=== PATIENT | female | born 1960 | race Caucasian/White ===

== ENCOUNTER 2018-03-17 09:21 | Emergency (ER) | payer OTHER, SELFPAY ==
[2018-03-17 09:30] VITALS: BP 136/72; PULSE 67; RESP 18; TEMP 36.8; O2SAT 99
--- NOTE | 2018-03-17 09:53 | DI.US.S_ITS ---
PROCEDURE: US PERIPH VENOUS LOW EXTREM LT INDICATIONS: pain, cramping, recent travel TECHNIQUE: Real-time imaging, as well as color and pulse Doppler interrogation, were performed of the lower extremity deep veins from the inguinal ligament to the popliteal fossa. COMPARISON: None. FINDINGS: The deep veins are normally compressible, and free of intraluminal thrombus. Color and pulse Doppler demonstrate normal phasic intraluminal flow. There is normal augmentation response to distal compression maneuver. IMPRESSION: No evidence of DVT seen in visualized left lower extremity veins. Dictated by: Anselmo Hudson M.D. on 03/17/2018 at 10:29 Approved by: Anselmo Hudson M.D. on 03/17/2018 at 10:30
--- NOTE | 2018-03-17 09:54 | DI.RAD.S_ITS ---
PROCEDURE: XR CHEST 1V INDICATIONS: syncope TECHNIQUE: One view of the chest was acquired. COMPARISON: None. FINDINGS: Surgical changes and devices: None. Lungs and pleura: No pleural effusions or pneumothorax. Lungs are clear. Mediastinum: Mediastinal contours appear normal. Heart size is normal. Bones and chest wall: No suspicious bony lesions. Overlying soft tissues appear unremarkable. IMPRESSION: No acute pulmonary process. Dictated by: Katya Dunn M.D. on 03/17/2018 at 10:52 Approved by: Katya Dunn M.D. on 03/17/2018 at 10:52
--- NOTE | 2018-03-17 09:58 | ED_ITS ---
HPI - Syncope General Chief Complaint: Syncope Stated Complaint: fainted last night, low blood pressure Time Seen by Provider: 03/17/18 09:32 Source: patient and family Mode of arrival: ambulatory Limitations: no limitations History of Present Illness HPI narrative: 57-year-old nonsmoking female presents with her daughter and a chief complaint of a syncopal episode last evening. She went to bed feeling in her normal state of health and was awoke in abruptly with a cramp in her left calf. She woke up and walked to the restroom and noted that she felt a bit dizzy and lightheaded. She urinated without difficulty and upon standing felt more dizzy. She was walking down the hallway when she collapsed, apparently having a complete syncopal episode that was brief. She denies any injuries as a result of the fall. She states she still feels a bit ill but is very nondescript in her description. She denies any recent illness such as nausea, vomiting or diarrhea. She denies any chest pain or shortness of breath. She has had episodes of dizziness in the past but states these related to SVT. She denies any change in diet or medication regimen. complaint: loss of consciousness Onset (ago): hour(s) Prodromal symptoms: lightheaded Witnessed: no Context: getting out of bed Injuries sustained associated with event: none Current symptoms: weakness Treatments prior to arrival: none Related Data Home Medications Medication Instructions Recorded Confirmed Vitamins 1 dose PO DAILY 03/17/18 03/17/18 trazodone 1 tab PO BEDTIME 03/17/18 03/17/18 Allergies Allergy/AdvReac Type Severity Reaction Status Date / Time No Known Drug Allergies Allergy Verified 03/17/18 09:39 Review of Systems Review of Systems All systems reviewed & are unremarkable except as noted in HPI and below Constitutional Denies chills, Denies fever(s), Denies lethargy and Denies weakness Eyes Denies change in vision, Denies eye discharge, Denies irritation and Denies loss of vision ENT Ears, Nose, Mouth, and Throat: Denies change in voice, Denies neck pain and Denies sore throat Cardiovascular Denies chest pain, Reports syncope, Denies irregular heart rhythm, Reports lightheadedness, Denies palpitations, Denies dyspnea, Denies dyspnea on exertion and Denies orthopnea Respiratory Denies cough, Denies dyspnea, Denies dyspnea on exertion and Denies wheezing Gastrointestinal Gastrointestinal: Denies abdominal pain, Denies change in bowel habits, Denies diarrhea, Denies nausea and Denies vomiting Genitourinary Denies hematuria, Denies flank pain, Denies urinary incontinence and Denies urinary urgency Musculoskeletal Denies neck pain Integumentary/Breasts Denies pruritus, Denies erythema, Denies rash and Denies wounds Neurologic Denies confusion, Reports syncope, Denies loss of vision and Denies weakness Psychiatric Denies anxiety, Denies confusion, Denies depression, Denies homicidal ideation and Denies suicidal ideation Endocrine Denies palpitations Hematologic/Lymphatic Denies easy bruising Allergic/Immunologic Denies wheezing [facility] Social History Smoking Status: Never smoker Exam Narrative Exam Narrative: 57-year-old female resting comfortably, no acute distress Initial Vital Signs Initial Vital Signs: Vital Signs Temperature 98.3 F 03/17/18 09:30 Pulse Rate 67 03/17/18 09:30 Respiratory Rate 18 03/17/18 09:30 Blood Pressure 136/72 03/17/18 09:30 Pulse Oximetry 99 03/17/18 09:30 Const General: cooperative and well developed Nutritional Appearance: well nourished Orientation: alert, awake, oriented x3 and not confused [facility] Head: normocephalic and atraumatic Ears: external ears normal and TM's normal bilaterally Nose: external nose normal and No nasal discharge Face and sinus: sinuses nontender, face symmetric, no sinus tenderness and No dry mucous membranes Mouth: oral mucosae normal and moist mucous membranes Teeth and gingiva: dentition normal Throat: tonsils normal and uvula midline Eyes General: appearance normal, both eyes and all related structures Eyelids: eyelids normal Conjunctivae: conjunctivae normal Sclera: sclerae normal Pupils: PERRL EOM: EOM intact bilaterally Chest Chest: normal inspection of the chest Resp Effort & Inspection: normal respiratory effort, able to speak in complete sentences, no respiratory distress and no use of accessory muscles Auscultation: clear to auscultation bilaterally, no rales, no rhonchi and no wheezes GI Inspection: non-distended Palpation: soft, no hepatosplenomegaly, No guarding, No pulsatile mass and No tender Auscultation: normal bowel sounds Back/Spine/Pelvis Back: No CVA tenderness Cervical Spine: cervical ROM normal and No pain with cervical ROM Thoracic/Lumbar Spine: thoracic and lumbar spine normal to inspection Neuro General: alert, oriented x3, gait normal and no focal motor deficits Speech: speech normal Psych Appearance: well kempt Mental Status: mental status grossly normal Attitude: cooperative Thought Content: normal and suicidality Judgment: judgment good Course Orders Ordered: ED Orders 03/17/18 09:50 Comprehensive Metabolic Panel Stat Troponin & CK Cardiac Panel Stat 03/17/18 09:53 US periph venous low extrem lt Stat EKG-12 Lead Stat 03/17/18 09:54 XR chest 1V Stat 03/17/18 10:40 Complete Blood Count AUTO DIFF Stat Discontinued Medications Sodium Chloride (Normal Saline 0.9%) 1,000 mls @ 1,000 mls/hr IV BOLUS ONE Stop: 03/17/18 10:52 Last Infusion: 03/17/18 11:50 Dose: 0 mls/hr Admin: 03/17/18 10:30 Dose: 1,000 mls/hr Vital Signs - 8 hr 03/17/18 09:30 03/17/18 11:09 03/17/18 11:59 Temperature 98.3 F Pulse Rate 67 60 Pulse Rate [Orthostatic Lying] 61 Pulse Rate [Orthostatic Sitting] 59 L Pulse Rate [Orthostatic Standing] 58 L Respiratory Rate 18 22 Blood Pressure 136/72 Blood Pressure [Left Arm] 123/72 Blood Pressure [Orthostatic Lying] 126/70 Blood Pressure [Orthostatic Sitting] 119/71 Blood Pressure [Orthostatic Standing] 129/69 Pulse Oximetry 99 100 03/17/18 12:00 03/17/18 12:13 Temperature Pulse Rate 59 L 60 Pulse Rate [Orthostatic Lying] Pulse Rate [Orthostatic Sitting] Pulse Rate [Orthostatic Standing] Respiratory Rate 22 21 Blood Pressure 139/75 Blood Pressure [Left Arm] 129/69 Blood Pressure [Orthostatic Lying] Blood Pressure [Orthostatic Sitting] Blood Pressure [Orthostatic Standing] Pulse Oximetry 100 97 MDM - Syncope Differential Diagnosis Likely syncope due to orthostatic hypotension and vasovagal syncope Medical Records Attestation: I reviewed the patient's medical records. Lab Data Attestation: I reviewed the patient's lab results. Result diagrams: 03/17/18 10:40 03/17/18 09:50 Lab Results 03/17/18 03/17/18 Range/Units 09:50 10:40 WBC 4.9 (4.5-11.0) X10^3/uL RBC 4.38 (4.0-5.2) X10^6/uL Hgb 13.6 (12.0-16.0) g/dL Hct 41.0 (36-46) % MCV 93.7 (80-100) fL MCH 31.1 (26-34) PG MCHC 33.2 (30-36) % RDW 13.5 (11.6-14.8) % Plt Count 224 (150-400) X10^3/uL Neut % (Auto) 61.3 (50-75) % Lymph % (Auto) 22.5 L (25-40) % Payne % (Auto) 15.3 H (3-14) % Eos % (Auto) 0.5 L (2-4) % Baso % (Auto) 0.4 (0-2) % Neut # (Auto) 3000 (0500-0617) /uL Sodium 138 (137-145) mmol/L Potassium 3.7 (3.4-5.1) mmol/L Chloride 98 (98-107) mmol/L Carbon Dioxide 28 (22-32) mmol/L BUN 10 (7-17) mg/dL Creatinine 0.70 (0.52-1.04) mg/dL Estimated GFR > 60.0 (>60) mL/min BUN/Creatinine Ratio 14.3 (6-22) Glucose 104 H (70-100) mg/dL Calcium 9.2 (8.4-10.2) mg/dL Total Bilirubin 0.5 (0.2-1.3) mg/dL AST 37 H (14-36) IU/L ALT 39 (9-52) IU/L Alkaline Phosphatase 36 L (38-126) U/L Total Creatine Kinase 228 H (30-135) U/L CK-MB (CK-2) 2.18 (<2.37) ng/mL CK-MB (CK-2) Rel Index 1.0 L (1.5-5.0) % Troponin I < 0.012 (0.01-0.034) ng/mL Total Protein 7.7 (6.3-8.2) g/dL Albumin 4.7 (3.5-5.0) g/dL Globulin 3.0 (1.7-4.1) g/dL Albumin/Globulin Ratio 1.6 (1.0-2.8) Point of Care Testing Glucose POC 108 Urine Dip Bedside Urine Glucose Negative Bedside Urine Bilirubin - Negative Bedside Urine Ketone - Negative Urine Specific [place] 1.010 Bedside Urine Occult Blood - Negative Bedside Urine pH 7.5 Bedside Urine Protein - Negative Bedside Urine Urobilinogen - Negative Bedside Urine Nitrite - Negative Bedside Urine Leukocytes - Negative Esterase ECG Data Attestation: I personally reviewed and interpreted this ECG as follows: Prior ECG tracings: not available for review Interpretation: EKG is normal sinus rhythm and free of any signs of ischemia or ectopy. MDM Narrative Medical decision making narrative: Healthy 57-year-old female presents with the syncopal episode. She denies any chest pain or shortness of breath nor any injuries as the result of her syncope. She has had trouble with dehydration in the past and was very busy yesterday and suggest she has had very little to drink. Her symptoms were worse with change in position. 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 She feels a near complete resolution of symptoms after fluids. Orthostatics are normal. Labs and EKG are unremarkable Discharge Plan Departure Patient Disposition: Home Clinical Impression: Syncope due to orthostatic hypotension Discharge Date/Time: 03/17/18 12:14 Interventions: ED Discharge Assessment Last Done: 03/17/18 12:13 Instructions: DI for Syncope in Adults (Fainting) Activity Restrictions/Additional Instructions: *You have been diagnosed with [syncopal episode, likely due to increased vagal tone and orthostasis ] *What to do: *Take medications as directed *Follow up with your primary care provider in 2-3 days, call for an appointment. Let them know you were seen in the Emergency Department and that we ask that you be seen in follow up *Return to ER if you should have any new, worsening or concerning symptoms Prescriptions: No Action trazodone 50 mg tablet 1 tab PO BEDTIME RF: 0 Vitamins 1 dose PO DAILY RF: 0
[2018-03-17 10:26] LABS: Alanine Aminotransferase 39 IU/L (9-52); Albumin 4.7 g/dL (3.5-5.0); Albumin Globulin Ratio 1.6 (1.0-2.8); Alkaline Phosphatase 36 U/L (38-126); Aspartate Aminotransferase 37 IU/L (14-36); BUN Creatinine Ratio 14.3 (6-22); Bilirubin Total 0.5 mg/dL (0.2-1.3); Blood Urea Nitrogen 10 mg/dL (7-17); Calcium 9.2 mg/dL (8.4-10.2); Carbon Dioxide 28 mmol/L (22-32); Chloride 98 mmol/L (98-107); Creatine Kinase 228 U/L (30-135); Estimated Glomerular Filt Rate > 60.0 mL/min (>60); Glucose 104 mg/dL (70-100); HEMOLYSIS < 15 (0-50); Potassium 3.7 mmol/L (3.4-5.1); Sodium 138 mmol/L (137-145); Total Protein 7.7 g/dL (6.3-8.2)
[2018-03-17] MEDS: SODIUM CHLORIDE 0.9% 1,000 ML 1000 ML IV (10:30)
[2018-03-17 10:41] LABS: Creatine Kinase MB 2.18 ng/mL (<2.37); Troponin I < 0.012 ng/mL (0.01-0.034)
[2018-03-17 10:52] LABS: Add Manual Diff / Slide Review NO; Basophils Percent Auto 0.4 % (0-2); Eosinophils Percent Auto 0.5 % (2-4); Hemoglobin 13.6 g/dL (12.0-16.0); Lymphocytes Percent Auto 22.5 % (25-40); Mean Corpuscular HGB Conc 33.2 % (30-36); Mean Corpuscular Hemoglobin 31.1 PG (26-34); Mean Corpuscular Volume 93.7 fL (80-100); Monocytes Percent Auto 15.3 % (3-14); Neutrophils Absolute Auto 3000 /uL (3000-5900); Neutrophils Percent Auto 61.3 % (50-75); Platelet Count 224 X10^3/uL (150-400); Red Blood Cell Count 4.38 X10^6/uL (4.0-5.2); Red Cell Distribution Width 13.5 % (11.6-14.8); White Blood Cell Count 4.9 X10^3/uL (4.5-11.0)
[2018-03-17 11:09] VITALS: BP 123/72; PULSE 60; RESP 22; O2SAT 100
[2018-03-17 11:59] VITALS: BP 119/71; BP 126/70; BP 129/69; PULSE 58; PULSE 59; PULSE 61
[2018-03-17 12:00] VITALS: BP 129/69; PULSE 59; RESP 22; O2SAT 100
[2018-03-17 12:13] VITALS: BP 139/75; PULSE 60; RESP 21; O2SAT 97
== END 2018-03-17 12:14 | disposition home or self-care (01) ==
PROVIDERS: Emergency Provider Emergency Medicine
DX: I95.1 Orthostatic hypotension (principal)
CPT/HCPCS: 36415; 36591; 71045; 80053; 81003; 82550; 82553; 82962; 84484; 85025; 93005; 93971; 96360; 99284; 99285

== ENCOUNTER 2019-01-03 09:30 | Emergency (ER) | payer OTHER, MEDICAID, SELFPAY ==
[2019-01-03 09:40] VITALS: BP 146/95; PULSE 64; RESP 18; TEMP 36.6; O2SAT 100
--- NOTE | 2019-01-03 09:48 | DI.RAD.S_ITS ---
PROCEDURE: XR FOOT RT MIN 3V INDICATIONS: fell, pain dorsum near toes TECHNIQUE: 3 views of the foot were acquired. COMPARISON: None. FINDINGS: Bones: Linear lucency projecting in the lateral malleolus however one view only. No suspicious bony lesions. Percent TB joint degeneration, moderate. Corticated ossicle projects adjacent to the anterior process of the calcaneus plantar calcaneal spurring. Prominent dorsal osteophyte, probably at the first MTP joint. Chronic 2 mm ossicle projects adjacent to the medial aspect of the talar head. Soft tissues: No tibiotalar joint effusion. Achilles tendon appears normal. IMPRESSION: Moderate first MTP degeneration prominent dorsal osteophyte raising possibility of hallux rigidus syndrome. Plantar calcaneal spur. Chronic corticated ossicle adjacent to the anterior process of the calcaneus, probably remote fracture fragment. Linear lucency projects in the lateral malleolus raising the possibility of fracture, however recommend clinical correlation to point tenderness and if necessary dedicated evaluation with ankle radiographs. Dictated by: Evans Bray M.D. on 01/03/2019 at 10:16 Approved by: Evans Bray M.D. on 01/03/2019 at 10:20
[2019-01-03 10:00] VITALS: PULSE 78
--- NOTE | 2019-01-03 11:18 | ED.LOWEXIN ---
HPI - Extremity Injury (Lower) <BOB Sahu - Last Filed: 01/03/19 15:20> General Chief Complaint: Extremity Injury, Lower Stated Complaint: 'might of broken some bones in my r foot' Time Seen by Provider: 01/03/19 11:04 Source: patient and family Mode of arrival: ambulatory Limitations: no limitations History of Present Illness HPI Narrative: This is a 58-year-old female, nonsmoker, presents with family member with chief complain of right foot and ankle discomfort with swelling and ecchymosis. The patient reports she had injured her right foot/ankle 5 days ago when her foot got caught on a door med and slid away from her body. She denies any other injuries from this. The patient reports the majority of pain is located on right lateral ankle. Also she noticed today pain in right foot, 2nd and 3rd MTP joints. She reports has been taking [id number] ibuprofen, elevated unaffected leg, soaking in Epsom salt water and used ice pack since the injury. Patient has been walking on affected foot without too much of severe pain. Related Data Home Medications Medication Instructions Recorded Confirmed Vitamins 1 dose PO DAILY 03/17/18 03/17/18 Allergies Allergy/AdvReac Type Severity Reaction Status Date / Time No Known Drug Allergies Allergy Verified 01/03/19 09:46 Review of Systems <BOB Sahu - Last Filed: 01/03/19 15:20> Review of Systems ROS Unobtainable: All systems reviewed & are unremarkable except as noted in HPI and below PFSH <BOB Sahu - Last Filed: 01/03/19 15:20> Medical History (Updated 01/03/19 @ 12:49 by BOB Sahu) No significant past medical history (Acute) Surgical History (Updated 01/03/19 @ 12:49 by BOB Sahu) No pertinent past surgical history (Acute) Social History Smoking Status: Never smoker Social History Smoking Status: Never smoker Exam <BOB Sahu - Last Filed: 01/03/19 15:20> Narrative Exam Narrative: General appearance: well developed, well nourished, in no acute distress. Head: normocephalic, atraumatic, no scalp lesions, non-tender. Eye: pupil equal, round. EOMI. Nose: nares patent. Oral: mucosa moist. Neck/Thyroid: neck supple, full range of motion, no visible masses. Skin: no suspicious rashes, lesions over visible areas. Warm and dry. Heart: no clubbing, no cyanosis, no edema. Lungs: Breathing even and unlabored. No stridor. No accessory muscles used. Chest: normal shape and expansion. Abdomen: non-obese, non-distended. Neurologic: alert and oriented. Cognitive exam, INTERCEPTOR OPERATOR and PNS grossly intact on informal exam. Psych: good eye contact, normal affect. Initial Vital Signs Initial Vital Signs: Vital Signs Temperature 97.8 F 01/03/19 09:40 Pulse Rate 64 01/03/19 09:40 Respiratory Rate 18 01/03/19 09:40 Blood Pressure 146/95 H 01/03/19 09:40 Pulse Oximetry 100 01/03/19 09:40 Extrem Right lower extremity: ankle (Lateral ankle with ecchymosis and swelling) Details: tenderness, swelling, edema, normal ROM and ecchymosis and foot Details: normal capillary refill, tenderness, toes with normal ROM, edema and ecchymosis (in 2-4 MTJ joints, bottom of the MTP joints) <Trang Reynolds DO - Last Filed: 01/04/19 08:12> Initial Vital Signs Initial Vital Signs: Vital Signs Temperature 97.8 F 01/03/19 09:40 Pulse Rate 64 01/03/19 09:40 Respiratory Rate 18 01/03/19 09:40 Blood Pressure 146/95 H 01/03/19 09:40 Pulse Oximetry 100 01/03/19 09:40 Procedures <BOB Sahu Last Filed: 01/03/19 15:20> Orthopedic Splinting/Casting Injury #1: Side: right Lower Extremity Injury Location: ankle Lower Extremity Immobilizer: AirCast Post splinting neuro exam: intact Post splinting vascular exam: intact Placed by: Nursing Course <BOB Sahu Last Filed: 01/03/19 15:20> Orders Ordered: ED Orders 01/03/19 09:48 XR foot RT min 3V Stat Vital Signs - 8 hr 01/03/19 09:40 01/03/19 10:00 01/03/19 11:41 Temperature 97.8 F Pulse Rate 64 54 L Pulse Rate [Right Dorsalis Pedis] 78 Respiratory Rate 18 16 Blood Pressure 146/95 H 114/68 Pulse Oximetry 100 100 <DO Josué Aguayo Last Filed: 01/04/19 08:12> Orders Ordered: ED Orders 01/03/19 09:48 XR foot RT min 3V Stat Vital Signs - 8 hr 01/03/19 09:40 01/03/19 10:00 01/03/19 11:41 Temperature 97.8 F Pulse Rate 64 54 L Pulse Rate [Right Dorsalis Pedis] 78 Respiratory Rate 18 16 Blood Pressure 146/95 H 114/68 Pulse Oximetry 100 100 MDM - Extremity Injury (Lower) <BOB Sahu - Last Filed: 01/03/19 15:20> Differential Diagnosis Likely ankle sprain and strain, fracture of toe, ankle fracture and other (sprain of toes/foot) Medical Records Attestation: I reviewed the patient's medical records. Imaging Data XR-Foot R: Radiologist's impression: [place] [address] XRay Report Signed Patient: Jenni Young#: [id number] : 9Acct:[id number] Age/Sex: 58 / FDate of Service: 01/03/19 Loc: ED Accession Number: [id number] Procedure: XR foot RT min 3V Ordering Provider: Trang Reynolds D.O. PROCEDURE: XR FOOT RT MIN 3V INDICATIONS: fell, pain dorsum near toes TECHNIQUE: 3 views of the foot were acquired. COMPARISON: None. FINDINGS: Bones: Linear lucency projecting in the lateral malleolus however one view only. No suspicious bony lesions. Percent TB joint degeneration, moderate. Corticated ossicle projects adjacent to the anterior process of the calcaneus plantar calcaneal spurring. Prominent dorsal osteophyte, probably at the first MTP joint. Chronic 2 mm ossicle projects adjacent to the medial aspect of the talar head. Soft tissues: No tibiotalar joint effusion. Achilles tendon appears normal. IMPRESSION: Moderate first MTP degeneration prominent dorsal osteophyte raising possibility of hallux rigidus syndrome. Plantar calcaneal spur. Chronic corticated ossicle adjacent to the anterior process of the calcaneus, probably remote fracture fragment. Linear lucency projects in the lateral malleolus raising the possibility of fracture, however recommend clinical correlation to point tenderness and if necessary dedicated evaluation with ankle radiographs. Dictated by: Evans Bray M.D. on 01/03/2019 at 10:16 Approved by: Evans Bray M.D. on 01/03/2019 at 10:20 [facility] Narrative Medical decision making narrative: This is 58-year-old female who presents ED with right lateral ankle discomfort and swelling with MTP joint on 2nd and 3rd toe pain, swelling and bruise. She had injured her right foot ankle 5 days ago. She has been bearing weight without severe pain. She has been using rest, elevation, ice pack and NSAIDs for last 5 days. X-ray test result indicates linear lucency projecting in the lateral malleolous in 1 of the views which could be a fracture. Patient was advised to follow up with her primary care physician if her pain is not improving in about a week for repeat x-ray test on ankle and a referral to orthopedist. Patient was placed on prefabricated air cast for comfort. Patient reports has been walking on it and does not think crutches is needed at this time. Patient advised continue to use Tylenol and/or Motrin for discomfort as needed. Patient agrees with the treatment plan and no further questions at this time. Discharge Plan Departure Patient Disposition: Home Clinical Impression: Ankle sprain and strain Right foot sprain Qualifiers: Encounter type: initial encounter Qualified Code(s): S93.601A - Unspecified sprain of right foot, initial encounter Discharge Date/Time: 01/03/19 11:41 Interventions: ED Discharge Assessment Last Done: 01/03/19 11:41 Instructions: DI for Ankle Sprain, DI for Foot Sprain Activity Restrictions/Additional Instructions: You have been diagnosed with [ankle and foot sprain possibe fracture on lateral ankle. Please continue to use rest, elevation, using a splint that has been provided to you. If her pain continues please follow up with her doctor next week for re-evaluation and imaging test on your ankle. ]. What to do: *Take your medications as directed. You could continue to take [id number] Motrin/ibuprofen, Tylenol as needed for you're pain. *Follow up with your primary care provider in 2-3 days, call for an appointment. Let them know you were seen in the ED and that we asked you to be seen in follow up. *Return to ED if you have any new, worsening, or concerning symptoms, such as [tingling, numbness, weakness to right foot, increasing pain, severe swelling, chest pain, difficulty breathing, unable to tolerate fluids or any acute concerns]. Prescriptions: No Action Vitamins 1 dose PO DAILY RF: 0 <Trang Reynolds DO - Last Filed: 01/04/19 08:12> Cosign ED Attending Ameature Attestation: I was immediately available in the department for consultation. Documentation has been reviewed. I agree with assessment and plan.
[2019-01-03 11:41] VITALS: BP 114/68; PULSE 54; RESP 16; O2SAT 100
== END 2019-01-03 11:41 | disposition home or self-care (01) ==
PROVIDERS: Emergency Provider Nurse Practitioner Family
DX: S93.401A Sprain of unspecified ligament of right ankle, initial encounter (principal); S96.911A Strain of unspecified muscle and tendon at ankle and foot level, right foot, initial encounter; S93.601A Unspecified sprain of right foot, initial encounter
CPT/HCPCS: 29540; 73630; 99282; 99283

== ENCOUNTER → 2019-01-11 10:41 | Outpatient (CLI) | payer OTHER, MEDICAID, SELFPAY ==
--- NOTE | 2019-01-11 10:46 | DI.RAD.S_ITS ---
PROCEDURE: XR ANKLE RT MIN 3V INDICATIONS: Fall on 01/03 pain lateral ankle and lower tib/fib TECHNIQUE: 3 views of the ankle were acquired. COMPARISON: None. FINDINGS: Bones: Nondisplaced fracture of the lateral malleolus. Calcaneal bone spur. Soft tissues: No tibiotalar joint effusion. Achilles tendon appears normal. Lateral soft tissue swelling is noted and ligamentous injury cannot be excluded. IMPRESSION: Lateral malleolus fracture. Dictated by: Libby Sánchez MD, PhD on 01/11/2019 at 16:45 Approved by: Libby Sánchez MD, PhD on 01/11/2019 at 16:46
--- NOTE | 2019-01-11 10:46 | DI.RAD.S_ITS ---
PROCEDURE: XR FOOT RT MIN 3V INDICATIONS: Fall on 01/03 pain distal 3rd and 4th metatarsals TECHNIQUE: 3 views of the foot were acquired. COMPARISON: [facility], CR, XR FOOT RT MIN 3V, 01/03/2019, 9:50. FINDINGS: Bones: Nondisplaced fracture lateral malleolus is stable. No acute fractures or dislocations involving the right foot. The rounded ossification with corticated margins adjacent to the anterior process of the calcaneus is stable. First MTP joint osteoarthritis is stable. No suspicious bony lesions. Plantar calcaneal bone spur is stable. Soft tissues: No tibiotalar joint effusion. Achilles tendon appears normal. IMPRESSION: 1. Stable exam compared to 01/03/2019 with no evidence of acute fracture involving the foot. 2. Lateral malleolus fracture. Dictated by: Libby Sánchez MD, PhD on 01/11/2019 at 16:46 Approved by: Libby Sánchez MD, PhD on 01/11/2019 at 16:49
== END ==
PROVIDERS: PCP Physician Assistant; Visit Provider Physician Assistant
DX: S82.61XA Displaced fracture of lateral malleolus of right fibula, initial encounter for closed fracture (principal); W19.XXXA Unspecified fall, initial encounter
CPT/HCPCS: 73610; 73630

== ENCOUNTER → 2019-02-27 07:48 | Outpatient (CLI) | payer OTHER, MEDICAID, SELFPAY ==
[2019-02-27 08:33] LABS: Alanine Aminotransferase 35 IU/L (9-52); Albumin 4.4 g/dL (3.5-5.0); Albumin Globulin Ratio 1.4 (1.0-2.8); Alkaline Phosphatase 36 U/L (38-126); Aspartate Aminotransferase 39 IU/L (14-36); Bilirubin Total 0.8 mg/dL (0.2-1.3); Blood Urea Nitrogen 12 mg/dL (7-17); Calcium 9.6 mg/dL (8.4-10.2); Carbon Dioxide 30 mmol/L (22-32); Chloride 99 mmol/L (98-107); Cholesterol 277 mg/dL (140-199); Estimated Glomerular Filt Rate > 60.0 mL/min (>60); Globulin 3.2 g/dL (1.7-4.1); Glucose 95 mg/dL (80-110); HDL Cholesterol 91 mg/dL (40-60); HEMOLYSIS 21 (0-50); LDL Cholesterol Calculated 164 mg/dL (<100); Potassium 4.2 mmol/L (3.4-5.1); Sodium 135 mmol/L (137-145); Total Protein 7.6 g/dL (6.3-8.2); Triglycerides 109 mg/dL (35-150)
== END ==
PROVIDERS: PCP Physician Assistant; Visit Provider Physician Assistant
DX: E78.5 Hyperlipidemia, unspecified (principal)
CPT/HCPCS: 36415; 80053; 80061

== ENCOUNTER 2019-03-07 23:48 | Observation (INO) | payer OTHER, MEDICAID, SELFPAY ==
[2019-03-08] VITALS (7 sets, daily range): BP systolic 116–129; BP diastolic 72–95; PULSE 62–85; RESP 16–18; TEMP 36.3–36.8; O2SAT 96–99; BMI 25.8
--- NOTE | 2019-03-08 01:32 | PM.HP.1 ---
History of Present Illness History of Present Illness Date Patient Seen: 03/08/19 Time Patient Seen: 01:00 Chief complaint: Syncope, Hypokalemia Narrative: Jenni Young is a 58 y.o. female with a history of SVT and subsequent ablation at [facility] in May of this year who presented to [facility] as a direct admit after having had several syncopal episodes while having dinner in Wednesday. She is with her daughter, Darius who also provided some history. She was in her usual state of health and developed some nausea, had a sudden onset of needing to go to the bathroom. She was reported to have had an incontinence episode and felt like she was blacking out. Her daughter stated her arms seemed to be contracted inward and shaking momentarely. She also took her mother's pulse and stated it was too fast to count. She had two more episodes, the third time, her daughter helped her to the floor. She denied fever, but stated she felt sweaty, denied feeling tachycardic, she has rare cases of orthopnea, had mild diarrhea today, and stated she felt nauseous but did not vomit. While at [facility], she was found to be hypokalemic with a potassium of 3.1 and was given Kcl 40 mEq orally. Her troponin drawn at 2226 was negative. She also received a normal saline bolus of 500 ml which was running when she arrived. She recently relocated from [facility] and had been receiving care at [facility]. She now sees Dr. Shoemaker at [facility]. She states she received flu and zoster vaccine last week. Patient History Medical History Anemia (Inactive ~1989) Bilateral bunions (Chronic ~2016) Chicken pox (Resolved) Fibroids (Inactive ~2008) History of iron deficiency anemia (Acute) History of supraventricular tachycardia (Resolved ~2013) History of urinary incontinence (Chronic ~2016) Irregular menstrual cycle (Inactive) Low testosterone (Chronic) Measles (Resolved) Vaginal atrophy (Chronic ~2016) Surgical History Anesthesia (Resolved) History of section (Resolved ~1985) History of hysterectomy (Resolved ~2008) History of supraventricular tachycardia (Resolved ~2017) No pertinent past surgical history (Acute) Family & Social History Family History Mother Skin cancer Diabetes mellitus Mental health problem Stroke Arthritis Family history of thyroid problem Sister Cancer Hyperlipidemia Family/Other Hypertension Social History: household members family Prior Living Arrangements House Safety & Behavioral: Feels Safe in Current Yes Environment Been Physically Hurt or No Threatened By a Person Suicidal Ideation Description None Suicide Plan Description No Plan Tobacco & Substance use: Smoking Status Never smoker alcohol intake current alcohol intake frequency 0-2 drinks per day Substance Use Type marijuana Meds Home Medications and Allergies Allergies Allergy/AdvReac Type Severity Reaction Status Date / Time No Known Drug Allergies Allergy Verified 01/11/19 09:58 Review of Systems Review of Systems ROS Unobtainable: All systems reviewed & are unremarkable except as noted in HPI and below Exam Vital Signs (past 8 hours): - 03/08/19 01:12 Temperature 98.1 F Pulse Rate 80 Respiratory Rate 16 Blood Pressure 129/76 Pulse Oximetry 99 Oxygen Flow Rate 0 Narrative Exam Narrative: Gen: Alert, oriented, well-developed 58 y.o. female, appears younger than stated age HEENT: normocephalic, atraumatic, conjunctiva clear, sclera non-icteric, oral mucosa pink and moist Neck: supple, full ROM Resp: Lungs CTA, non-labored breathing CV: RRR, no murmur or rubs Abd: soft, non-tender, normoactive BTs Skin: no lesions or rashes, dry and intact Neuro: Alert and oriented X 4 w/no focal deficits Extremities: moves all 4 extremities, is ambulatory, negative Cindy?s sign Psyche: normal mood and affect. Assessment & Plan Assessment & Plan narrative: Jenni Young will be kept in observation overnight on telemetry to further evaluate her syncopy. 1. Syncopal episode, acute, present on admission Patient will be observed overnight Troponins with am labs CBC, CMP in the am U/A was negative for a UTI 2. Hypokalemia of 3.1, acute and present on admission Recheck potassium level in the am and replete if necessary 3. History of SVT and ablation, chronic and stable See #1 If she has any episodes, cardiology consult will be requested She will likely need to be followed by cardiology outpatient 4. Hyperlipidemia recently diagnosed on 02/27/19, new and present on admission TSH ordered for the am TC was 277, LDL was 164, HDL was 91 She should be started on a statin and recheck X 3 months Patient is admitted to observation as her stay is not anticipated to exceed 2 midnights. FEN: IV saline lock, low salt diet, chemistries in the am. VTE Prophylaxis: Enoxaparin 40 mg subQ daily Disposition: Likely discharge to home with close PCP follow-up Code status: Full Code Admission time: 65 minutes Meds reconciled: N/A, patient does not take any medications Time Spent With Patient Time with patient: 25 - 35 minutes Quality VTE Deep Vein Thrombosis/Pulmonary Embolism Present on Admission: No
[2019-03-08 01:44] LABS: Appearance Urine UA CLEAR; Bacteria Urine None Seen; Bilirubin Urine UA NEGATIVE (NEGATIVE); Glucose Urine UA NEGATIVE (Negative); Ketones Urine UA NEGATIVE (NEGATIVE); Leukocyte Esterase Urine UA NEGATIVE (NEGATIVE); Nitrite Urine UA NEGATIVE (Negative); Occult Blood Urine UA NEGATIVE (Negative); Protein Urine UA NEGATIVE (Negative); RBC Urine None Seen (0-5/HPF); Specific Gravity Urine UA <=1.005 (1.000-1.035); Urobilinogen Urine UA 0.2 E.U./dL (0.2); WBC Urine None Seen (0-5/HPF)
[2019-03-08 01:45] LABS: Color Urine UA Straw; Culture Indicated Urine Cult Not Indicated; Urine Comments Microscopic Normal
--- NOTE | 2019-03-08 04:02 | PC.NURSE ---
Pt admitted to unit with Daughter as AxOx3, vitals stable. Tolerating room air. Tele: NSR, 1st AVB. Denies chest pain/pressure/palpitations Pt states she takes no home medications. independent of ADLs, SBA to BSC
[2019-03-08 06:13] LABS: Add Manual Diff / Slide Review NO; Basophils Absolute Auto 0 /uL (0-100); Basophils Percent Auto 0.3 % (0-2); Eosinophils Absolute Auto 100 /uL (0-450); Eosinophils Percent Auto 1.6 % (2-4); Hematocrit 37.5 % (36-46); Hemoglobin 12.8 g/dL (12.0-16.0); Lymphocytes Absolute Auto 1300 /uL (1100-4500); Lymphocytes Percent Auto 22.4 % (25-40); Mean Corpuscular HGB Conc 34.1 % (30-36); Mean Corpuscular Hemoglobin 31.9 PG (26-34); Mean Corpuscular Volume 93.6 fL (80-100); Monocytes Absolute Auto 700 /uL (0-900); Monocytes Percent Auto 11.5 % (3-14); Neutrophils Absolute Auto 3700 /uL (1500-7000); Neutrophils Percent Auto 64.2 % (50-75); Platelet Count 260 X10^3/uL (150-400); Red Blood Cell Count 4.01 X10^6/uL (4.0-5.2); Red Cell Distribution Width 13.2 % (11.6-14.8); White Blood Cell Count 5.7 X10^3/uL (4.5-11.0)
[2019-03-08 06:27] LABS: Alanine Aminotransferase 21 IU/L (9-52); Albumin 3.9 g/dL (3.5-5.0); Albumin Globulin Ratio 1.3 (1.0-2.8); Alkaline Phosphatase 37 U/L (38-126); Aspartate Aminotransferase 24 IU/L (14-36); BUN Creatinine Ratio 18.3 (6-22); Bilirubin Total 0.5 mg/dL (0.2-1.3); Blood Urea Nitrogen 11 mg/dL (7-17); Calcium 9.4 mg/dL (8.4-10.2); Carbon Dioxide 26 mmol/L (22-32); Chloride 106 mmol/L (98-107); Estimated Glomerular Filt Rate > 60.0 mL/min (>60); Globulin 2.9 g/dL (1.7-4.1); Glucose 110 mg/dL (80-110); HEMOLYSIS < 15 (0-50); Potassium 4.2 mmol/L (3.4-5.1); Sodium 138 mmol/L (137-145); Total Protein 6.8 g/dL (6.3-8.2)
[2019-03-08 06:38] LABS: Troponin I < 0.012 ng/mL (0.01-0.034)
--- NOTE | 2019-03-08 07:50 | DI.ECHO.S_ITS ---
[facility] +---------+ [facility] +---------+ : : [address] : : : : [id number] : : : : Phone: [phone] Echocardiogram Report + + :Name: MARIA M GARCIA Study Date: 03/08/2019 Height: 68 in : :[facility] Exam Location: [place] Weight: 171 lb : : Gender: Female BSA: 1.9 m2 : :: 1960 Age: 58 yrs BP: 129/76 mmHg: :Reason For Study: Syncope / History of SVT/ Ablation : :Ordering Physician: Tylor : :Hospitalist Performed By: Moni Page : :Referring: TISH DURHAM : + + Interpretation Summary The ejection fraction is estimated to be 60-65%. There is trace mitral regurgitation. The aortic valve is mildly calcified. There is trace tricuspid regurgitation. The right ventricular systolic pressure is estimated to be at least 16 mmHg based on an estimated right atrial pressure of 3 mm Hg. Procedure: A two-dimensional transthoracic echocardiogram with color flow and Doppler was performed. The study quality was technically adequate. There is no prior echocardiogram noted for this patient. The patient was in normal sinus rhythm during the exam. Left Ventricle: The left ventricle is normal in size, wall thickness, and systolic function without any focal wall motion abnormalities. The ejection fraction is estimated to be 60-65%. Right Ventricle: The right ventricle is normal in size and function. Atria: Both atria are normal in size. There is no Doppler evidence for an interatrial shunt. Mitral Valve: The mitral valve is normal in structure and function. There is trace mitral regurgitation. Aortic Valve: The aortic valve is trileaflet. The aortic valve opens well. The aortic valve is mildly calcified. No aortic regurgitation is present. Tricuspid Valve: The tricuspid valve is normal in structure and function. There is trace tricuspid regurgitation. The right ventricular systolic pressure is estimated to be at least 16 mmHg based on an estimated right atrial pressure of 3 mm Hg. Pulmonic Valve: The pulmonic valve is not well seen, but is grossly normal. There is trace pulmonic regurgitation. Great Vessels: The aortic root is normal size. The ascending aorta is normal in size. The pulmonary artery is not well visualized, but is probably normal size. The IVC is of normal diameter and collapses greater than 50% with a sniff. This suggests a low right atrial pressure of 3 mm Hg. Pericardium/ Pleura There is a trace loculated pericardial effusion. There is no pleural effusion. MMode/2D Measurements & Calculations LVIDd: 4.8 cm LVOT diam: 2.2 cm LVIDs: 2.9 cm Ao root diam: 3.2 cm FS: 38.9 % asc Aorta Diam: 3.3 cm EPSS: 0.11 cm IVSd: 0.71 cm LVPWd: 0.66 cm LV valentine. diameter/BSA (cm/m^2): 2.5 LV sys. diameter/BSA (cm/m^2): 1.5 LA A2 area: 18.9 cm2 RA long axis: 4.6 cm LA A4 area: 17.4 cm2 RA area: 14.5 cm2 LA length (vol): 4.8 cm RA vol: 39.0 ml LA vol: 58.2 ml RA : 20.4 ml/m2 LA vol index: 30.4 ml/m2 IVC diam: 1.6 cm RVD1 (basal): 4.0 cm RVD2 (mid): 3.5 cm Doppler Measurements & Calculations Ao V2 max: 127.5 cm/sec LVOT Max Akhil: 83.3 cm/sec Ao V2 mean: 89.3 cm/sec LV V1 max P.8 mmHg Ao max P.5 mmHg LV V1 VTI: 17.1 cm Ao mean P.5 mmHg SHERRILL(I,D): 2.4 cm2 Ao V2 VTI: 26.2 cm SHERRILL(V,D): 2.4 cm2 sev ratio: 0.65 SHERRILL indexed to BSA (cm^2/m^2): 1.2 MV E max akhil: 55.1 cm/sec TR max akhil: 183.3 cm/sec MV A max akhil: 52.5 cm/sec TR max P.4 mmHg MV E/A: 1.1 PA V2 max: 70.9 cm/sec Med Peak E' Akhil: 4.3 cm/sec PA V2 mean: 50.3 cm/sec E/E' med: 12.7 PA mean P.1 mmHg Lat Peak E' Akhil: 6.5 cm/sec PA Accel Time: 0.12 sec E/E' lat: 8.5 E/e' average: 10.6 MV dec time: 0.19 sec MV P1/2t: 54.3 msec MV P1/2t max akhil: 56.3 cm/sec SV(LVOT): 62.2 ml MVA(P1/2t): 4.1 cm2 Reading Physician:02:09 PM
--- NOTE | 2019-03-08 08:55 | DI.CT.S_ITS ---
PROCEDURE: CT HEAD/BRAIN WO CON INDICATIONS: syncope vs new seizure TECHNIQUE: Noncontrast 4.5 mm thick angled axial sections acquired from the foramen magnum to the vertex, with coronal and sagittal reformats. For radiation dose reduction, the following was used: automated exposure control, adjustment of mA and/or kV according to patient size. COMPARISON: None. FINDINGS: Image quality: Excellent. CSF spaces: Basal cisterns are patent. No extra-axial fluid collections. Ventricles are normal in size and shape. Brain: No midline shift. No intracranial masses or hemorrhage. Diego-white matter interface is normal. Skull and face: Calvarium and visualized facial bones are intact, without suspicious lesions. Sinuses: There is mucosal thickening of the sphenoid sinuses. Remainder of the paranasal sinuses appear clear. Mastoid air cells are well-aerated. IMPRESSION: 1. CT head without acute intracranial abnormalities. No evidence for mass or mass effect. 2. Sphenoid sinus disease. Dictated by: David Jacinto M.D. on 03/08/2019 at 9:27 Approved by: David Jacinto M.D. on 03/08/2019 at 9:28
[2019-03-08] MEDS: ENOXAPARIN 40 MG/0.4 ML SYRINGE SUBCUT (10:22)
--- NOTE | 2019-03-08 10:29 | CM.IDA ---
Initial DCP Assessment Note: Pt is a 58 yo female, recently moved to [place] from [place], [place]. Pt under observation after syncopal event, Dr Gotti has ordered CT of the head, ECHO and pt remains on tele today. PCP: Cordelia Shoemaker Payer: [employer]/Medicaid Reviewed chart. Attempted to meet w/pt and she was off the floor for CT. Supportive dtr at bedside. This TACK DRILLER will remain available in case DC needs arise today. Dr Gotti expects pt may be able to DC home today or tomorrow pending the results of the tests ordered today to r/o seizure or other cardiac event P: DC home is expected w/supportive family and close outpt f/u. Following closely for any needs that might arise. JAMILAH Abdullahi Discharge Planning/Care Management CM Discharge Assessment Start: 03/08/19 10:26 Freq: Status: Active Protocol: Document 03/08/19 10:26 RICK (Rec: 03/08/19 10:28 RICK [id number]) Discharge Planning Assessment Assigned Fire Truck Driver JAMILAH Shepherd DPOA/Assigned Designee Name Brain Car dtr Contact Information [phone] Advance Directives? No History Provided By Patient Prior Living Arrangements House Household Members family Independent with ADL's Yes Is patient alert and oriented? Yes Barriers to Discharge No Comment Home w/family Discharge Plan Home Transportation Arrangement Family Referrals Initiated None needed Review Status In Process
--- NOTE | 2019-03-08 14:36 | P.DS_ITS ---
History of Present Illness History of Present Illness Date Patient Seen: 03/08/19 Time Patient Seen: 14:37 Chief complaint: Syncope, Hypokalemia Narrative: As per BOB Becker: Jenni Young is a 58 y.o. female with a history of SVT and subsequent ablation at [facility] in May of this year who presented to [facility] as a direct admit after having had several syncopal episodes while having dinner in Wednesday. She is with her daughter, Darius who also provided some history. She was in her usual state of health and developed some nausea, had a sudden onset of needing to go to the bathroom. She was reported to have had an incontinence episode and felt like she was blacking out. Her daughter stated her arms seemed to be contracted inward and shaking momentarely. She also took her mother's pulse and stated it was too fast to count. She had two more episodes, the third time, her daughter helped her to the floor. She denied fever, but stated she felt sweaty, denied feeling tachycardic, she has rare cases of orthopnea, had mild diarrhea today, and stated she felt nauseous but did not vomit. While at [facility], she was found to be hypokalemic with a potassium of 3.1 and was given Kcl 40 mEq orally. Her troponin drawn at 2226 was negative. She also received a normal saline bolus of 500 ml which was running when she arrived. She recently relocated from [facility] and had been receiving care at [facility]. She now sees Dr. Shoemaker at [facility]. She states she received flu and zoster vaccine last week. Discharge Providers Provider Date of admission: 03/07/19 23:48 Discharge Date: 03/08/19 Primary care physician: Jalyn Shoemaker PA-C Discharge provider: Reynaldo Pierce DO Summary Hospital Course Discharge Diagnosis: 1. Syncopal episode, acute, present on admission 2. Hypokalemia, acute and present on admission 3. History of SVT and ablation, chronic and stable 4. Hyperlipidemia, present on addmission. Hospital Course: Jenni Young is a 58-year-old female with history of SVT status post ablation who presented after a syncopal episode with prodromal symptoms. Because of her history she was sent to [facility] for further evaluation. She had an echocardiogram which was unremarkable, and telemetry did not show any events while she was here. Her story is consistent with a neurogenic cause of her syncope, however because of her previous SVT I cannot rule out completely a cardiac cause however her echo is reassuring and the fact she had no events on telemetry also was reassuring. Her troponin was negative. Given that she had an episode of bladder and stool incontinence during that ep isode, I performed a head CT which also was unremarkable. This was highly unlikely to be a seizure. 1. Syncopal episode, acute, present on admission - workup as noted above. Most likely neurogenic, but cannot rule out cardiac completely but she has had no events here in her echocardiogram is unremarkable. She should follow up with her utility worker film processing for possible loop recorder to see if she has any further events. 2. Hypokalemia of 3.1, acute and present on admission, repleted and subsequentl y normal upon discharge. 3. History of SVT and ablation, chronic and stable She need to be followed by cardiology outpatient with a loop recorder as noted above 4. Hyperlipidemia recently diagnosed on 02/27/19, new and present on admission TSH was unremarkable. TC was 277, LDL was 164, HDL was 91 Consider statin therapy, which I will defer to her primary care provider. Status at Discharge Cognitive/behavioral status at discharge: oriented Functional status at discharge: independent ambulation Overall status at discharge: patient is back to baseline Time Spent with Patient Time spent: Greater than 30 minutes Exam Vital Signs (past 8 hours): - 03/08/19 07:00 03/08/19 07:50 03/08/19 11:54 Temperature 98 F 98 F Pulse Rate 77 78 Respiratory Rate 16 16 Blood Pressure 121/77 125/75 Pulse Oximetry 98 96 99 Oxygen Delivery Method Room Air Oxygen Flow Rate 0 Narrative Exam Narrative: GENERAL APPEARANCE: Well developed, well nourished, in no acute distress. SKIN: Inspection of the skin reveals no rashes, ulcerations or petechiae. HEENT: The sclerae were anicteric and conjunctivae were pink and moist. Extraocular movements were intact and pupils were equal, round with normal accommodation. External inspection of the ears and nose showed no scars, lesions, or masses. Lips, teeth, and gums showed normal mucosa. The oral mucosa, hard and soft palate, tongue and posterior pharynx were unremarkable. NECK: Supple and symmetric. There was no thyroid enlargement, and no tenderness, or masses were felt. CHEST: Normal AP diameter and normal contour without any kyphoscoliosis. LUNGS: Auscultation of the lungs revealed no wheezes, rhonchi, or rales. CARDIOVASCULAR: There was a regular rate and rhythm without any murmurs, gallops, rubs. Peripheral pulses were 2+ and symmetric. ABDOMEN: Soft and nontender with normal bowel sounds. No ascites was noted. MUSCULOSKELETAL: There was no tenderness or effusions noted. Muscle strength and tone were normal. EXTREMITIES: No cyanosis, clubbing or edema. NEUROLOGIC: Alert and oriented x 3. Normal affect. Gait was normal. Strength is +5/5 in the Upper Extremities and Lower Extremities Bilaterally. Sensation to touch was normal. Objective Labs Result Diagrams: 03/08/19 05:47 03/08/19 05:47 Labs: Laboratory Results - last 24 hr 03/08/19 03/08/19 03/08/19 00:45 05:47 05:47 WBC 5.7 RBC 4.01 Hgb 12.8 Hct 37.5 MCV 93.6 MCH 31.9 MCHC 34.1 RDW 13.2 Plt Count 260 Neut % (Auto) 64.2 Lymph % (Auto) 22.4 L [place] % (Auto) 11.5 Eos % (Auto) 1.6 L Baso % (Auto) 0.3 Neut # (Auto) 3700 Lymph # (Auto) 1300 [place] # (Auto) 700 Eos # (Auto) 100 Baso # (Auto) 0 Sodium 138 Potassium 4.2 Chloride 106 Carbon Dioxide 26 BUN 11 Creatinine 0.60 Estimated GFR > 60.0 BUN/Creatinine Ratio 18.3 Glucose 110 Calcium 9.4 Total Bilirubin 0.5 AST 24 ALT 21 Alkaline Phosphatase 37 L Troponin I < 0.012 Total Protein 6.8 Albumin 3.9 Globulin 2.9 Albumin/Globulin Ratio 1.3 TSH Urine Color Straw Urine Appearance Clear Urine pH 7.0 Ur Specific [place] <=1.005 Urine Protein Negative Urine Glucose (UA) Negative Urine Ketones Negative Urine Occult Blood Negative Urine Nitrate Negative Urine Bilirubin Negative Urine Urobilinogen 0.2 Ur Leukocyte Esterase Negative Urine RBC None seen Urine WBC None seen Urine Bacteria None seen Ur Culture Indicated? Cult not indicated Micro UA Comment Microscopic normal 03/08/19 05:47 WBC RBC Hgb Hct MCV MCH MCHC RDW Plt Count Neut % (Auto) Lymph % (Auto) [place] % (Auto) Eos % (Auto) Baso % (Auto) Neut # (Auto) Lymph # (Auto) [place] # (Auto) Eos # (Auto) Baso # (Auto) Sodium Potassium Chloride Carbon Dioxide BUN Creatinine Estimated GFR BUN/Creatinine Ratio Glucose Calcium Total Bilirubin AST ALT Alkaline Phosphatase Troponin I Total Protein Albumin Globulin Albumin/Globulin Ratio TSH 3.30 Urine Color Urine Appearance Urine pH Ur Specific [place] Urine Protein Urine Glucose (UA) Urine Ketones Urine Occult Blood Urine Nitrate Urine Bilirubin Urine Urobilinogen Ur Leukocyte Esterase Urine RBC Urine WBC Urine Bacteria Ur Culture Indicated? Micro UA Comment Discharge Plan Discharge Plan Patient Disposition: Home Discharge comment: Your admitted to the hospital for further evaluation after an episode of syncope. The cause is most likely benign, however because of your history of an arrhythmia with ablation we performed an echocardiogram which was unremarkable. I also performed a head CT which was unremarkable as well. You should follow up with her utility worker film processing for a possible loop recorder to see if you're having any more arrhythmias. Discharge Med Rec/Prescriptions Prescriptions: Continued ferrous sulfate 325 mg (65 mg iron) tablet 325 mg PO DAILY RF: 0 Follow up/Referrals: Jalyn Shoemaker PA-C [Primary Care Provider] - Provider Discharge Instructions Diet: Diet as Tolerated Activity: No restrictions Visit Report/Discharge Packet Visit Report Forms: Patient Portal/API, Stroke Signs & Symptoms Discharge Data Primary Care Provider: Jalyn Shoemaker Attending Provider: Henny Bray Admit Date/Time: 03/07/19 23:48 Quality VTE Deep Vein Thrombosis/Pulmonary Embolism Present on Admission: No
--- NOTE | 2019-03-08 16:59 | PC.NURSE ---
Discharge Note- Patient discharged home. Discharge paperwork and education reviewed with patient and signed. All personal belongings packed up by patient. room rechecked. patient left via wheelchiar with COUNSELING SPECIALIST to private car at 1658.
== END 2019-03-08 16:59 | disposition home or self-care (01) ==
PROVIDERS: Admitting Provider Nurse Practitioner Family; PCP Physician Assistant; Visit Provider Nurse Practitioner Family
DX: R55 Syncope and collapse (principal); E87.6 Hypokalemia; E78.5 Hyperlipidemia, unspecified
CPT/HCPCS: 36415; 70450; 80053; 81001; 84443; 84484; 85025; 93306; G0378; G0379; J1650

== ENCOUNTER → 2019-11-22 08:07 | Outpatient (CLI) | payer OTHER, MEDICAID, SELFPAY ==
[2019-03-08 00:15] VITALS: BMI 25.8
[2019-11-22 08:36] LABS: Alanine Aminotransferase 31 IU/L (<35); Albumin 4.3 g/dL (3.5-5.0); Albumin Globulin Ratio 1.4 (1.0-2.8); Alkaline Phosphatase 32 U/L (38-126); Aspartate Aminotransferase 36 IU/L (14-36); BUN Creatinine Ratio 18.8 (6-22); Bilirubin Total 0.7 mg/dL (0.2-1.3); Blood Urea Nitrogen 13 mg/dL (7-17); Calcium 9.7 mg/dL (8.4-10.2); Carbon Dioxide 28 mmol/L (22-32); Chloride 103 mmol/L (98-107); Cholesterol 255 mg/dL (140-199); Estimated Glomerular Filt Rate > 60.0 mL/min (>60); Glucose 103 mg/dL (80-110); HDL Cholesterol 77 mg/dL (40-60); HEMOLYSIS < 15 (0-50); LDL Cholesterol Calculated 158 mg/dL (<100); Potassium 4.2 mmol/L (3.4-5.1); Sodium 137 mmol/L (137-145); Total Protein 7.3 g/dL (6.3-8.2); Triglycerides 102 mg/dL (35-150)
== END ==
PROVIDERS: PCP Internal Medicine; Referring Provider Internal Medicine; Visit Provider Internal Medicine
DX: E78.5 Hyperlipidemia, unspecified (principal)
CPT/HCPCS: 36415; 80053; 80061

== ENCOUNTER → 2019-12-02 12:28 | Outpatient (CLI) | payer OTHER, MEDICAID, SELFPAY ==
[2019-03-08 00:15] VITALS: BMI 25.8
[2019-12-03 23:08] LABS: COVID19 Sendout Not Detected (Not Detect)
== END ==
PROVIDERS: PCP Internal Medicine; Visit Provider Physician Assistant
DX: Z01.812 Encounter for preprocedural laboratory examination (principal)
CPT/HCPCS: 87635

== ENCOUNTER 2019-12-05 11:55 | Day surgery (SDC) | payer OTHER, MEDICAID, SELFPAY ==
[2019-03-08 00:15] VITALS: BMI 25.8
[2019-12-05] VITALS (7 sets, daily range): BP systolic 100–120; BP diastolic 64–79; PULSE 54–71; RESP 11–20; TEMP 35.9–36.6; O2SAT 96–100; BMI 25.7
[2019-12-05] MEDS: SODIUM CHLORIDE 0.9% 1,000 ML 200 ML IV (12:35)
--- NOTE | 2019-12-05 12:47 | PM.HP.1 ---
History of Present Illness History of Present Illness Date Patient Seen: 12/05/19 Time Patient Seen: 12:48 Chief complaint: [id number] Narrative: This is a 59-year-old woman with history of screening colonoscopy 10 years ago, which was reportedly normal. She denies any new symptoms such as melena, hematochezia, unexplained weight loss, unexplained abdominal pain. She has had a cardiac ablation in 2018 for SVT, she had an unexplained syncope in the fall of 2019. She had cardiac and neurologic evaluation which revealed no identifiable cause. The symptoms have not occurred again since then. She said during the event she was out eating dinner with her daughter, had no particular symptoms other than feeling full and wearing tight pants. ROS: Thirteen system review is otherwise negative other than as mentioned below and in HPI. PE: GENERAL: Well groomed and cooperative. Appears stated age. Answers questions promptly and appropriately. Vital signs noted. HENT: Normocephalic, atraumatic. Hearing intact. EYES: Conjunctiva pink, sclera white, no periorbital swelling. CARDIOVASCULAR: Regular rate. No pedal edema. RESPIRATORY: Non-tachypneic, breathing comfortably on room air. GASTROINTESTINAL: Abdomen soft and non-distended GENITALURINARY: No flank tenderness. MUSCULOSKELETAL: Equal tone and mass bilaterally. SKIN: Warm, dry, soft, appropriate color for ethnicity. No other lesions, rashes, or wounds. NEURO: Alert and Oriented X 3. No gross sensory deficits, or cognitive issues. PSYCH: Appropriate affect and mood. Patient History Medical History Anemia (Resolved ~1989) Bilateral bunions (Chronic ~2016) Fibroids (Inactive ~2008) History of iron deficiency anemia (Acute) History of supraventricular tachycardia (Resolved ~2013) History of urinary incontinence (Chronic ~2016) Irregular menstrual cycle (Inactive) Vaginal atrophy (Chronic ~2016) Surgical History Anesthesia (Resolved) History of section (Resolved ~1985) History of hysterectomy (Resolved ~2008) History of supraventricular tachycardia (Resolved ~2017) No pertinent past surgical history (Acute) Family & Social History Family History Mother Skin cancer Diabetes mellitus Mental health problem Stroke Arthritis Family history of thyroid problem Sister Cancer Hyperlipidemia Family/Other Hypertension Social History: household members family Tobacco & Substance use: Smoking Status Never smoker alcohol intake current alcohol intake frequency a few times a week Substance Use Type marijuana Meds Home Medications and Allergies Home Medications Medication Instructions Recorded Confirmed Type red yeast rice 600 mg tablet 600 mg PO DAILY 11/06/19 12/05/19 History multivitamin 1 tab PO DAILY 12/05/19 12/05/19 History Allergies Allergy/AdvReac Type Severity Reaction Status Date / Time rosuvastatin [From Crestor] AdvReac Intermediate felt poorly Verified 12/05/19 12:17 Exam Vital Signs (past 8 hours): - 12/05/19 12:27 Temperature 97.8 F Pulse Rate 70 Respiratory Rate 16 Blood Pressure 110/75 Pulse Oximetry 99 Oxygen Delivery Method Room Air Assessment & Plan Assessment and plan (1) At average risk for colon cancer: Status: Acute (2) Anxiety: Status: Chronic (3) History of supraventricular tachycardia: Status: Resolved (4) History of supraventricular tachycardia: Problem details: Ablation Status: Acute Assessment & Plan narrative: Risks and benefits of screening colonoscopy and possible polypectomy were discussed with the patient including risk of bleeding, perforation, need for additional procedures, risks of anesthesia. The patient desires to proceed with the colonoscopy procedure. COVID-19 COVID-19 status: Negative Result date/Date tested (Pos, Neg/Pending): 12/02/19 Time Spent With Patient Time with patient: 15-24 minutes Quality VTE Deep Vein Thrombosis/Pulmonary Embolism Present on Admission: No
[2019-12-05] MEDS: MIDAZOLAM 5 MG/5 ML VIAL IV (13:02)
[2019-12-05] MEDS: fentaNYL 250 MCG/5 ML INJ IV (13:02)
--- NOTE | 2019-12-05 13:24 | P.OP.ENDO_ITS ---
Operative Date/Time/Diagnoses Date of procedure: 12/05/19 Time of procedure: 13:24 Pre-op diagnosis: average risk for colon cancer, 10 years from last screening colonoscopy Post-op diagnosis: other (Normal colon) Procedure & Clinicians Study performed: Colonoscopy Procedural sedation performed by endoscopist Same procedure as scheduled: Yes Indications: Average risk for colon cancer, 10 years since last screening colonoscopy Surgeon: Maru Boyer Procedure Notes SCOAP/Timeout: Performed Procedure in detail: The patient was brought to the room and placed in left lateral decubitus position with all bony prominences padded. A time-out was performed and then the patient was given procedural sedation starting with 2 mg of Versed and 100 mcg of fentanyl. A total of 6 mg of Versed and 250 micro g of fentanyl were given for the entire procedure. Vitals were monitored throughout the procedure and remained stable. Once adequately sedated, the procedure was begun. A rectal exam was performed revealing no abnormalities. The colonoscope was then introduced to the rectum and advanced to the cecum in the usual fashion. The cecum was identified by the appendiceal orifice, the mucosal tri- fold, and the ileocecal valve. The colon was extremely tortuous, and passage through the twists of the colon was quite difficult, however we did region easily identify the cecum. The scope was then retracted while rotating side to side and examining each mucosal fold. At the conclusion of the procedure retroflexion was performed and small grade 1-2 internal hemorrhoids without stigmata of bleeding were seen. The scope was then withdrawn from the rectum the procedure was concluded. The patient tolerated the procedure well and was transferred to the PACU in stable condition. Scope withdrawal time: 8 Sedation minutes: 21 Specimen(s): none sent Complications: none Impression: Normal colonic mucosa, very tortuous colon Post-procedure Recommendations: Colonscopy in 10 years Follow up: as needed Disposition: PACU
== END 2019-12-05 14:47 | disposition home or self-care (01) ==
PROVIDERS: PCP Internal Medicine; Referring Provider Internal Medicine; Visit Provider Surgery
PROC: 0DJD8ZZ Inspection of Lower Intestinal Tract, Via Natural or Artificial Opening Endoscopic (ICD-10-PCS; CPT 45378; principal; 2019-12-05 13:00)
DX: Z12.11 Encounter for screening for malignant neoplasm of colon (principal); K64.0 First degree hemorrhoids
CPT/HCPCS: 45378; 99152; J2250; J3010

== ENCOUNTER → 2021-01-15 11:38 | Outpatient (CLI) | payer OTHER, MEDICAID, SELFPAY ==
[2019-03-08 00:15] VITALS: BMI 25.8
[2021-01-16 10:45] LABS: Rubeola Measles IgG > 300.0 AU/mL (Immune >16.4)
== END ==
PROVIDERS: PCP Internal Medicine; Referring Provider Internal Medicine; Visit Provider Internal Medicine
DX: Z78.9 Other specified health status (principal)
CPT/HCPCS: 36415; 86735; 86762; 86765

== ENCOUNTER → 2021-01-24 07:47 | Outpatient (CLI) | payer OTHER, MEDICAID, SELFPAY ==
[2019-03-08 00:15] VITALS: BMI 25.8
[2021-01-24 08:40] LABS: Alanine Aminotransferase 27 IU/L (<35); Albumin 4.1 g/dL (3.5-5.0); Albumin Globulin Ratio 1.4 (1.0-2.8); Alkaline Phosphatase 36 U/L (38-126); Aspartate Aminotransferase 31 IU/L (14-36); BUN Creatinine Ratio 13.3 (6-22); Bilirubin Total 0.6 mg/dL (0.2-1.3); Blood Urea Nitrogen 10 mg/dL (7-17); Calcium 9.6 mg/dL (8.4-10.2); Carbon Dioxide 29 mmol/L (22-32); Chloride 104 mmol/L (98-107); Cholesterol 254 mg/dL (140-199); Estimated Glomerular Filt Rate > 60.0 mL/min (>60); Globulin 2.9 g/dL (1.7-4.1); Glucose 100 mg/dL (80-110); HDL Cholesterol 79 mg/dL (40-60); HEMOLYSIS < 15 (0-50); LDL Cholesterol Calculated 146 mg/dL (<100); Potassium 4.5 mmol/L (3.4-5.1); Sodium 137 mmol/L (137-145); Triglycerides 143 mg/dL (35-150)
== END ==
PROVIDERS: PCP Internal Medicine; Referring Provider Internal Medicine; Visit Provider Internal Medicine
DX: Z13.220 Encounter for screening for lipoid disorders (principal); Z79.899 Other long term (current) drug therapy
CPT/HCPCS: 36415; 80053; 80061

== ENCOUNTER → 2021-03-28 09:39 | Outpatient (CLI) | payer OTHER, MEDICAID, SELFPAY ==
[2019-03-08 00:15] VITALS: BMI 25.8
--- NOTE | 2021-03-28 09:42 | DI.RAD.S_ITS ---
PROCEDURE: XR ANKLE RT MIN 3V INDICATIONS: fall TECHNIQUE: 3 views of the ankle were acquired. COMPARISON: [facility], CR, XR ANKLE RT MIN 3V, 01/11/2019, 10:54. FINDINGS: Bones: No fractures or dislocations. Ankle mortise is normally aligned. No suspicious bony lesions. Soft tissues: No tibiotalar joint effusion. Achilles tendon appears normal. IMPRESSION: No evidence acute bony abnormality of the right ankle. If clinical suspicion and/or symptoms persist, further assessment with repeat plain films, or advanced imaging (e.g., CT, MRI, or bone scan) may be helpful for further assessment. Dictated by: Ashok Story M.D. on 03/28/2021 at 10:02 Approved by: Ashok Story M.D. on 03/28/2021 at 10:07
== END ==
PROVIDERS: PCP Internal Medicine; Referring Provider Physician Assistant; Visit Provider Physician Assistant
DX: M25.571 Pain in right ankle and joints of right foot (principal); M25.473 Effusion, unspecified ankle
CPT/HCPCS: 73610

== ENCOUNTER → 2021-05-12 10:54 | Outpatient (CLI) | payer OTHER, SELFPAY ==
[2019-03-08 00:15] VITALS: BMI 25.8
--- NOTE | 2021-05-12 10:55 | DI.MG.S_ITS ---
BILATERAL DIGITAL SCREENING MAMMOGRAM 3D/2D WITH CAD: 05/12/2021 CLINICAL: Routine screening. Family history of breast cancer. Comparison is made to exams dated: 05/04/2018 mammogram and 03/29/2017 mammogram - [facility]. The tissue of both breasts is heterogeneously dense. This may lower the sensitivity of mammography. Current study was also evaluated with a Computer Aided Detection (CAD) system. No significant masses, calcifications, or other findings are seen in either breast. There has been no significant interval change. IMPRESSION: NEGATIVE There is no mammographic evidence of malignancy. A 1 year screening mammogram is recommended. This exam was interpreted at Station ID: [id number]. NOTE: For mammograms, a report in lay terms will be sent to the patient. Approximately 15% of breast malignancies will not be visualized mammographically. In the management of a palpable breast mass, a negative mammogram must not discourage biopsy of a clinically suspicious lesion. Electronically Signed By: Jose ramírez/archie:05/12/2021 11:27:16 letter sent: Normal Exam ACR BI-RADS Category 1: Negative [id number]
== END ==
PROVIDERS: PCP Internal Medicine; Referring Provider Internal Medicine; Visit Provider Internal Medicine
DX: Z12.31 Encounter for screening mammogram for malignant neoplasm of breast (principal); Z80.3 Family history of malignant neoplasm of breast
CPT/HCPCS: 77063; 77067

== ENCOUNTER → 2022-07-25 09:00 | Outpatient (CLI) | payer OTHER, SELFPAY ==
[2019-03-08 00:15] VITALS: BMI 25.8
--- NOTE | 2022-07-25 | DI.MG.S_ITS ---
BILATERAL DIGITAL SCREENING MAMMOGRAM 3D/2D WITH CAD: 07/25/2022 CLINICAL: Routine screening. Family history of breast cancer. Comparison is made to exams dated: 05/12/2021 mammogram - [facility], 05/04/2018 mammogram, and 03/29/2017 mammogram - [facility]. Both breasts are heterogeneously dense, which may obscure small masses (category c / 51-75% glandular tissue). Current study was also evaluated with a Computer Aided Detection (CAD) system. No significant masses, calcifications, or other findings are seen in either breast. There has been no significant interval change. IMPRESSION: NEGATIVE There is no mammographic evidence of malignancy. A 1 year screening mammogram is recommended. This exam was interpreted at Station ID: [id number]. NOTE: For mammograms, a report in lay terms will be sent to the patient. Approximately 15% of breast malignancies will not be visualized mammographically. In the management of a palpable breast mass, a negative mammogram must not discourage biopsy of a clinically suspicious lesion. Electronically Signed By: Donnie strong/archie:07/27/2022 07:51:54 letter sent: Normal Exam ACR BI-RADS Category 1: Negative [id number]
== END ==
PROVIDERS: PCP Internal Medicine; Referring Provider Internal Medicine; Visit Provider Internal Medicine
DX: Z12.31 Encounter for screening mammogram for malignant neoplasm of breast (principal); Z80.3 Family history of malignant neoplasm of breast
CPT/HCPCS: 77063; 77067

== ENCOUNTER → 2022-08-04 09:24 | Outpatient (CLI) | payer OTHER, SELFPAY ==
[2019-03-08 00:15] VITALS: BMI 25.8
[2022-08-04 10:36] LABS: Alanine Aminotransferase 29 IU/L (<35); Albumin 4.3 g/dL (3.5-5.0); Albumin Globulin Ratio 1.3 (1.0-2.8); Alkaline Phosphatase 35 U/L (38-126); Aspartate Aminotransferase 28 IU/L (14-36); BUN Creatinine Ratio 17.2 (6-22); Bilirubin Total 0.6 mg/dL (0.2-1.3); Blood Urea Nitrogen 11 mg/dL (7-17); Calcium 9.6 mg/dL (8.4-10.2); Carbon Dioxide 28 mmol/L (22-32); Chloride 102 mmol/L (98-107); Cholesterol 282 mg/dL (140-199); Estimated Glomerular Filt Rate > 60 mL/min (>60); Globulin 3.2 g/dL (1.7-4.1); Glucose 101 mg/dL (80-110); HDL Cholesterol 92 mg/dL (40-60); HEMOLYSIS 24 (0-50); LDL Cholesterol Calculated 170 mg/dL (<100); Potassium 4.4 mmol/L (3.4-5.1); Sodium 135 mmol/L (137-145); Total Protein 7.5 g/dL (6.3-8.2); Triglycerides 102 mg/dL (35-150)
== END ==
PROVIDERS: PCP Internal Medicine; Referring Provider Internal Medicine; Visit Provider Internal Medicine
DX: E78.5 Hyperlipidemia, unspecified (principal); Z13.1 Encounter for screening for diabetes mellitus; Z13.6 Encounter for screening for cardiovascular disorders
CPT/HCPCS: 36415; 80053; 80061

== ENCOUNTER → 2023-02-11 09:48 | Outpatient (CLI) | payer OTHER, SELFPAY ==
[2019-03-08 00:15] VITALS: BMI 25.8
== END ==
PROVIDERS: PCP Internal Medicine; Referring Provider Internal Medicine; Visit Provider Internal Medicine
DX: I47.1 Supraventricular tachycardia (principal)
CPT/HCPCS: 93242

== ENCOUNTER 2023-04-16 00:14 | Emergency (ER) | payer OTHER, SELFPAY ==
[2019-03-08 00:15] VITALS: BMI 25.8
[2023-04-16] VITALS (7 sets, daily range): BP systolic 127–139; BP diastolic 68–79; PULSE 72–80; RESP 16–26; TEMP 36; O2SAT 98–100; BMI 27.0
--- NOTE | 2023-04-16 00:14 | DI.CT.S_ITS ---
PROCEDURE: CT CERVICAL SPINE WO CON INDICATIONS: fall large lac TECHNIQUE: Noncontrast 3 mm thick sections acquired from the skull base to the T4 level. Sagittal and coronal reformats were then constructed. For radiation dose reduction, the following was used: automated exposure control, adjustment of mA and/or kV according to patient size. COMPARISON: None. FINDINGS: Image quality: Excellent. Bones: No fractures or dislocations. Mild degenerative changes. Visualized superior ribs are intact. Soft tissues: Prevertebral soft tissues are normal in thickness. No paravertebral hematomas. No apical pneumothoraces. IMPRESSION: No acute osseous abnormality. Dictated by: Donnie Mart M.D. on 04/16/2023 at 1:02 Approved by: Donnie Mart M.D. on 04/16/2023 at 1:05
--- NOTE | 2023-04-16 00:14 | DI.CT.S_ITS ---
PROCEDURE: CT HEAD/BRAIN WO CON INDICATIONS: fall large lac TECHNIQUE: Noncontrast 4.5 mm thick angled axial sections acquired from the foramen magnum to the vertex, with coronal and sagittal reformats. For radiation dose reduction, the following was used: automated exposure control, adjustment of mA and/or kV according to patient size. COMPARISON: [facility], CT, CT HEAD/BRAIN WO CON, 03/08/2019, 9:02. FINDINGS: Image quality: Excellent. CSF spaces: Basal cisterns are patent. No extra-axial fluid collections. Ventricles are normal in size and shape. Brain: No midline shift. No intracranial masses or hemorrhage. Diego-white matter interface is within normal limits. Skull and face: Left lateral scalp laceration, (09/04). Calvarium and visualized facial bones are intact, without suspicious lesions. Sinuses: Visualized sinuses and mastoids are clear. IMPRESSION: No acute intracranial abnormality. Left lateral scalp laceration. Dictated by: Donnie Mart M.D. on 04/16/2023 at 0:53 Approved by: Donnie Mart M.D. on 04/16/2023 at 0:56
--- NOTE | 2023-04-16 00:42 | DI.RAD.S_ITS ---
PROCEDURE: XR CHEST 1V INDICATIONS: chest pain TECHNIQUE: One view of the chest was acquired. COMPARISON: [facility], CT, CT CERVICAL SPINE WO CON, 04/16/2023, 0:26. [facility], CR, XR CHEST 1V, 03/17/2018, 10:29. FINDINGS: Surgical changes and devices: None. Lungs and pleura: Lungs are clear. No pleural effusions or pneumothorax. Mediastinum: Mediastinal contours appear normal. Heart size is normal. Bones and chest wall: No suspicious bony lesions. Overlying soft tissues appear unremarkable. IMPRESSION: No acute cardiopulmonary abnormality is seen. Dictated by: Donnie Mart M.D. on 04/16/2023 at 1:18 Approved by: Donnie Mart M.D. on 04/16/2023 at 1:18
[2023-04-16 01:06] LABS: Alanine Aminotransferase 26 IU/L (<35); Albumin 3.8 g/dL (3.5-5.0); Albumin Globulin Ratio 1.3 (1.0-2.8); Alkaline Phosphatase 33 U/L (38-126); Aspartate Aminotransferase 30 IU/L (14-36); BUN Creatinine Ratio 23.7 (6-22); Bilirubin Total 0.4 mg/dL (0.2-1.3); Blood Urea Nitrogen 18 mg/dL (7-17); Calcium 9.7 mg/dL (8.4-10.2); Carbon Dioxide 25 mmol/L (22-32); Chloride 104 mmol/L (98-107); Creatine Kinase 67 U/L (30-135); Estimated Glomerular Filt Rate > 60 mL/min (>60); Glucose 127 mg/dL (80-110); HEMOLYSIS 22 (0-50); Lipase 166 U/L (23-300); Potassium 3.6 mmol/L (3.4-5.1); Sodium 137 mmol/L (137-145); Total Protein 6.8 g/dL (6.3-8.2)
[2023-04-16 01:07] LABS: Lactate (Lactic Acid) 1.4 mmol/L (0.7-2.1)
[2023-04-16 01:08] LABS: Add Manual Diff / Slide Review NO; Basophils Absolute Auto 0 /uL (0-100); Basophils Percent Auto 0.2 % (0-2); Eosinophils Absolute Auto 200 /uL (0-450); Eosinophils Percent Auto 2.5 % (2-4); Hematocrit 37.6 % (36-46); Hemoglobin 12.6 g/dL (12.0-16.0); Lymphocytes Absolute Auto 3900 /uL (1100-4500); Lymphocytes Percent Auto 47.1 % (25-40); Mean Corpuscular HGB Conc 33.4 % (30-36); Mean Corpuscular Hemoglobin 31.3 PG (26-34); Mean Corpuscular Volume 93.5 fL (80-100); Monocytes Absolute Auto 1000 /uL (0-900); Monocytes Percent Auto 11.5 % (3-14); Neutrophils Absolute Auto 3200 /uL (1500-7000); Neutrophils Percent Auto 38.7 % (50-75); Platelet Count 287 X10^3/uL (150-400); Red Blood Cell Count 4.02 X10^6/uL (4.0-5.2); Red Cell Distribution Width 13.2 % (11.6-14.8); White Blood Cell Count 8.4 X10^3/uL (4.5-11.0)
[2023-04-16 01:18] LABS: Troponin I < 0.012 ng/mL (0.01-0.034)
--- NOTE | 2023-04-16 01:24 | ED_ITS ---
HPI - Fall General Chief Complaint: Fall Stated Complaint: syncope Time Seen by Provider: 04/16/23 00:42 Source: patient and EMS Mode of arrival: EMS History of Present Illness HPI Narrative: Patient 62-year-old female history of SVT presents today with a syncopal episode. She reports that she was going to the restroom to have a bowel movement she thinks she did have at least some bowel movement and then passed out hit her head has a large laceration on the left side that is full-thickness. She apparently was able to crawl to the living room she felt blood dripping down her head she thought it was coming from her ear and 911 was called. She was hypotensive but that has improved with IV fluid. She is not on antiplatelet or anticoagulation medication. She is shaking. She reports that she is had cold for a few days but does not feel like she was really sick. Daughter at bedside reports that she has had syncopal episodes previously also going to the restroom. 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 According to records she had a Zio patch which did show brief but present episodes of SVT. She reports that at that time she felt heart palpitations. The and has never passed out from that. She has previously passed out while going to the bathroom at night. Related Data Home Medications Medication Instructions Recorded Confirmed multivitamin 1 tab PO DAILY 12/05/19 01/15/23 Previous Rx's Medication Instructions Recorded Vitamin B3 1 tab PO DAILY #1 tab 04/01/21 oxybutynin chloride 5 mg 5 mg PO DAILY Urinary urgency and 09/30/22 tablet,extended release 24 hr frequency #30 tabs trazodone 50 mg tablet 50 mg PO BEDTIME PRN insomnia #90 01/15/23 tabs Allergies Allergy/AdvReac Type Severity Reaction Status Date / Time rosuvastatin [From Crestor] AdvReac Intermediate felt poorly Verified 01/15/23 14:59 Review of Systems Review of Systems ROS Unobtainable: All systems reviewed & are unremarkable except as noted in HPI and below Patient History Medical History Urge incontinence Hair loss Bulimia Bilateral bunions (~2016) Anemia (~1989) Vaginal atrophy (~2016) Irregular menstrual cycle Fibroids (~2008) History of urinary incontinence (~2016) History of supraventricular tachycardia (~2013) History of iron deficiency anemia Surgical History Anesthesia History of hysterectomy (~2008) History of section (~1985) No pertinent past surgical history Family History Mother Skin cancer Diabetes mellitus Mental health problem Stroke Arthritis Family history of thyroid problem Sister Cancer Hyperlipidemia Family/Other Hypertension Social History household members: family Smoking Status: Never smoker second hand exposure: No alcohol intake: current substance use type: marijuana Smoking Status: Never smoker alcohol intake frequency: a few times a week Substance Use Type: marijuana Exam Initial Vital Signs Initial Vital Signs: Vital Signs Temperature 96.8 F L 04/16/23 00:20 Pulse Rate 80 04/16/23 00:20 Respiratory Rate 16 04/16/23 00:20 Blood Pressure 129/68 04/16/23 00:20 Pulse Oximetry 99 04/16/23 00:20 Oxygen Delivery Method Room Air 04/16/23 00:20 GENERAL: Alert pleasant 62-year-old female and in no acute distress. HEENT: Head large laceration on the left side 5 cm full-thickness bleeding controlled,EOMI, pupils reactive, face symmetric, moist mucous membranes NECK: Cervical collar in place CARDIOVASCULAR: Regular rate and rhythm without murmurs, rubs or gallops. RESPIRATORY: Breath sounds equal bilaterally, no wheezes rales or rhonchi. ABDOMEN: Soft, nontender. Normoactive bowel sounds all 4 quadrants. No guarding or rebound. RECTAL: Incontinent of stool : No CVA tenderness EXTREMITIES: Normal range of motion, no clubbing or edema. Neurovascularly intact NEUROLOGICAL: Alert and oriented x4.Normal gait and speech. Cranial nerves II through XII grossly intact. SKIN: Scalp laceration as described above Warm, dry, no laceration, no petechiae, no rashes or lesions. Procedures Laceration Repair Laceration 1: Site: scalp Side (If applicable): left Size (cm): 5 Description: linear Depth: simple, single layer Local Anesthetic: lidocaine 1% and with epi Amount of anesthesia used (mL): 5 Pre-repair: wound explored, irrigated extensively and deep structures intact Skin layer closed with: kirti (5) Scores GCS Dru coma scale eye opening: Spontaneous Dru coma scale verbal response: Orientated Dru coma scale motor response: Obey commands Dru coma scale total score: 15 Course Orders Ordered: ED Orders 04/16/23 00:14 CT cervical spine wo con Stat CT head/brain wo con Stat 04/16/23 00:15 Complete Blood Count AUTO DIFF Stat Comprehensive Metabolic Panel Stat Lactate (Lactic Acid) Stat Lipase Stat Troponin & CK Cardiac Panel Stat 04/16/23 00:42 XR chest 1V Stat EKG-12 Lead Stat 04/16/23 01:10 COVID19 -Nasal RAPID Stat Discontinued Medications Sodium Chloride (Normal Saline 0.9%) 1,000 mls @ 1,000 mls/hr IV CONT ERIC Last Admin: 04/16/23 02:00 Dose: Not Given Documented By: VENUS Lidocaine/Epinephrine (Lidocaine 2% W/Epi Inj) 20 ml INJ INTRA-OP ONE Stop: 04/16/23 01:26 Last Admin: 04/16/23 01:28 Dose: 20 ml Documented By: VENUS Vital Signs Vital signs: Vital Signs - 8 hr 04/16/23 00:20 04/16/23 00:45 04/16/23 01:00 Temperature 96.8 F L Pulse Rate 80 76 73 Respiratory Rate 16 18 20 Blood Pressure 129/68 137/79 127/73 Pulse Oximetry 99 100 99 Oxygen Delivery Method Room Air 04/16/23 01:30 04/16/23 01:58 04/16/23 02:00 Temperature Pulse Rate 76 78 Respiratory Rate 20 22 Blood Pressure 127/73 139/72 Pulse Oximetry 99 99 Oxygen Delivery Method 04/16/23 02:00 04/16/23 02:21 Temperature Pulse Rate 77 72 Respiratory Rate 26 H 18 Blood Pressure 139/72 Pulse Oximetry 99 98 Oxygen Delivery Method Room Air MDM - Fall Lab Data 04/16/23 00:15 04/16/23 00:15 Labs: Lab Results 04/16/23 04/16/23 Range/Units 00:15 01:10 WBC 8.4 (4.5-11.0) X10^3/uL RBC 4.02 (4.0-5.2) X10^6/uL Hgb 12.6 (12.0-16.0) g/dL Hct 37.6 (36-46) % MCV 93.5 (80-100) fL MCH 31.3 (26-34) PG MCHC 33.4 (30-36) % RDW 13.2 (11.6-14.8) % Plt Count 287 (150-400) X10^3/uL Neut % (Auto) 38.7 L (50-75) % Lymph % (Auto) 47.1 H (25-40) % Bullock % (Auto) 11.5 (3-14) % Eos % (Auto) 2.5 (2-4) % Baso % (Auto) 0.2 (0-2) % Neut # (Auto) 3200 (1016-4677) /uL Lymph # (Auto) 3900 (6016-6114) /uL Bullock # (Auto) 1000 H (0-900) /uL Eos # (Auto) 200 (0-450) /uL Baso # (Auto) 0 (0-100) /uL Sodium 137 (137-145) mmol/L Potassium 3.6 (3.4-5.1) mmol/L Chloride 104 (98-107) mmol/L Carbon Dioxide 25 (22-32) mmol/L BUN 18 H (7-17) mg/dL Creatinine 0.76 (0.52-1.04) mg/dL Estimated GFR > 60 (>60) mL/min BUN/Creatinine Ratio 23.7 H (6-22) Glucose 127 H (80-110) mg/dL Lactate 1.4 (0.7-2.1) mmol/L Calcium 9.7 (8.4-10.2) mg/dL Total Bilirubin 0.4 (0.2-1.3) mg/dL AST 30 (14-36) IU/L ALT 26 (<35) IU/L Alkaline Phosphatase 33 L (38-126) U/L Total Creatine Kinase 67 (30-135) U/L Troponin I < 0.012 (0.01-0.034) ng/mL Total Protein 6.8 (6.3-8.2) g/dL Albumin 3.8 (3.5-5.0) g/dL Globulin 3.0 (1.7-4.1) g/dL Albumin/Globulin Ratio 1.3 (1.0-2.8) Lipase 166 (23-300) U/L SARS-CoV-2 (PCR) Negative (Negative) Imaging Data CT - cervical spine: Radiologist's Impression: PROCEDURE: CT CERVICAL SPINE WO CON INDICATIONS: fall large lac TECHNIQUE: Noncontrast 3 mm thick sections acquired from the skull base to the T4 level. Sagittal and coronal reformats were then constructed. For radiation dose reduction, the following was used: automated exposure control, adjustment of mA and/or kV according to patient size. COMPARISON: None. FINDINGS: Image quality: Excellent. Bones: No fractures or dislocations. Mild degenerative changes. Visualized superior ribs are intact. Soft tissues: Prevertebral soft tissues are normal in thickness. No paravertebral hematomas. No apical pneumothoraces. IMPRESSION: No acute osseous abnormality. Dictated by: Donnie Mart M.D. on 04/16/2023 at 1:02 CT scan - head: Radiologist's Impression: PROCEDURE: CT HEAD/BRAIN WO CON INDICATIONS: fall large lac TECHNIQUE: Noncontrast 4.5 mm thick angled axial sections acquired from the foramen magnum to the vertex, with coronal and sagittal reformats. For radiation dose reduction, the following was used: automated exposure control, adjustment of mA and/or kV according to patient size. COMPARISON: [facility], CT, CT HEAD/BRAIN WO CON, 03/08/2019, 9:02. FINDINGS: Image quality: Excellent. CSF spaces: Basal cisterns are patent. No extra-axial fluid collections. Ventricles are normal in size and shape. Brain: No midline shift. No intracranial masses or hemorrhage. Diego-white matter interface is within normal limits. Skull and face: Left lateral scalp laceration, (09/04). Calvarium and visualized facial bones are intact, without suspicious lesions. Sinuses: Visualized sinuses and mastoids are clear. IMPRESSION: No acute intracranial abnormality. Left lateral scalp laceration. Dictated by: Donnie Mart M.D. on 04/16/2023 at 0:53 Approved by: Donnie Mart M.D. on 04/16/2023 at 0:56 Chest x-ray: Radiologist's Impression: PROCEDURE: XR CHEST 1V INDICATIONS: chest pain TECHNIQUE: One view of the chest was acquired. COMPARISON: [facility], CT, CT CERVICAL SPINE WO CON, 04/16/2023, 0:26. [facility], CR, XR CHEST 1V, 03/17/2018, 10:29. FINDINGS: Surgical changes and devices: None. Lungs and pleura: Lungs are clear. No pleural effusions or pneumothorax. Mediastinum: Mediastinal contours appear normal. Heart size is normal. Bones and chest wall: No suspicious bony lesions. Overlying soft tissues appear unremarkable. IMPRESSION: No acute cardiopulmonary abnormality is seen. Dictated by: Donnie Mart M.D. on 04/16/2023 at 1:18 ECG Data Interpretation: Sinus rhythm rate 73 WI interval 240 QRS [address] changes low voltage MDM Narrative Medical decision making narrative: Patient 62-year-old female presents today after syncopal episode while in the bathroom. Suspect that she vasovagal will having a bowel movement or at least attempting to have a bowel movement. She would a large laceration over the left side of her scalp did go down to bone. But bleeding well-controlled easily repaired with kirti. Head CT cervical spine and chest x-ray are negative. Blood work is overall reassuring without anemia significant electrolyte abnormality or DAVON. This has however happened to her previously but does not sound like it is often. 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 Discharge Plan Departure Patient Disposition: Home Clinical Impression: Syncope, vasovagal, Laceration of head Instructions: DI for Syncope in Adults (Fainting), DI for Laceration Repair -- [place] Activity Restrictions/Additional Instructions: *You have been diagnosed with syncopal episode, head laceration *What to do: At this time kirti need to be removed in about 7-10 days. May shower and bathe use soap and water. No hair cuts Suspect that you passed out while going to the bathroom. However for full clearance back to work you need to go to your primary care provider. Limit your exertion monitor your symptoms if you should pass out again you need to return to the ED *Continue to take medications as directed *Follow up with your primary care provider in 2-3 days or call [phone] *Return to ER if you should have recurrent episode of passing out dizziness lightheadedness chest pain or any new, worsening or concerning symptoms Prescriptions: No Action Vitamin B3 500 mg 1 tab PO DAILY Qty: 1 0RF oxybutynin chloride 5 mg tablet extended release 24hr 5 mg PO DAILY Qty: 30 12RF trazodone 50 mg tablet 50 mg PO BEDTIME PRN (Reason: insomnia) Qty: 90 3RF multivitamin Tablet 1 tab PO DAILY Referrals: Gumaro Delgado MD [Primary Care Provider] - Stand Alone Forms: Patient Portal/API
[2023-04-16] MEDS: LIDOCAINE 2% W/EPI INJ 20 ML INJ (01:28)
[2023-04-16 01:54] LABS: COVID19 -Nasal RAPID Negative (Negative)
--- NOTE | 2023-04-16 01:55 | PC.NURSE ---
pt ambulated to the br without assistance denied any dizziness or lightheadedness
== END 2023-04-16 02:22 | disposition home or self-care (01) ==
PROVIDERS: Emergency Provider Emergency Medicine; PCP Internal Medicine
DX: R55 Syncope and collapse (principal); S01.01XA Laceration without foreign body of scalp, initial encounter; W18.30XA Fall on same level, unspecified, initial encounter; Z11.52 Encounter for screening for COVID-19
CPT/HCPCS: 12002; 70450; 71045; 72125; 80053; 82550; 83605; 83690; 84484; 85025; 87635; 93005; 99284; C9803

== ENCOUNTER → 2023-05-26 06:54 | Outpatient (CLI) | payer OTHER, SELFPAY ==
[2019-03-08 00:15] VITALS: BMI 25.8
--- NOTE | 2023-05-26 06:55 | DI.ECHO.S_ITS ---
Version: 1 Study ID: [id number] [place] [address] Name: MARIA M GARCIA Study Date: 05/26/2023, 7: 22 AM : 1960 BP: 105 / 76 mmHg Gender: Female Height: 68 in Age: 62 Years Weight: 180 lb BSA: 1.95 mA? Referring: SUSANA BALTAZAR Clinician: Nick Duarte Reason For Study: SYNCOPE History: Summary Statements Normal sinus rhythm. Normal LV size and wall thickness; normal wall motion and LV systolic function. EF is 55-60%. Normal chamber sizes. No valvular abnormalities. Compared to prior echo 03/08/2019 no changes have occurred. Procedure: A two-dimensional transthoracic echocardiogram with color flow and Doppler was performed. The study quality was technically adequate. Comparison is made with the echocardiogram of 03/08/19. The patient was in normal sinus rhythm during the exam. Left Ventricle: Diastolic parameters suggest a relaxation abnormality of the left ventricle, consistent with probable normal filling pressures. The ejection fraction is estimated to be 55-60%. The left ventricle is normal in size. There is normal left ventricular wall thickness. There are no focal wall motion abnormalities. Right Ventricle: The right ventricle is normal in size and function. Atria: There is no Doppler evidence for an atrial septal defect. Both atria are normal in size. Mitral Valve: There is trace mitral regurgitation. There is a flat closure plane of the the mitral valve leaflets. Aortic Valve: No aortic regurgitation is present. The aortic valve is trileaflet. The aortic valve is mildly calcified. The aortic valve opens well. Tricuspid Valve: There is trace tricuspid regurgitation. The right ventricular systolic pressure is estimated to be at least 19 mmHg based on an estimated right atrial pressure of 3 mm Hg. The tricuspid valve is normal in structure and function. Pulmonic Valve: There is trace pulmonic regurgitation. The pulmonic valve leaflets are thin and pliable; valve motion is normal. Great Vessels: The ascending aorta is at the upper limits of normal in size. The aortic root is normal size. The IVC is of normal diameter and collapses greater than 50% with a sniff. This suggests a low right atrial pressure of 3 mm Hg. The pulmonary artery is normal size. Pericardium/ Pleura: There is no pericardial effusion. There is no pleural effusion. 2D and M-Mode Measurements and Calculations LVIDd: 4.5 cm AoV Openin.66 cm LVIDs: 2.48 cm LVOT diam: 2.09 cm IVSd: 0.83 cm Ao root diam: 3.3 cm LVPWd: 0.89 cm asc Aorta Diam: 3.5 cm LV valentine. diameter/BSA (cm/m^2): 2.28 Ao Arch Diam (Prox Trans): 2.6 cm LV sys. diameter/BSA (cm/m^2): 1.27 EPSS: 0.17 cm LA A4 area: 16.7 vba developer? IVC diam: 1.82 cm LA A2 area: 21.6 vba developer? RA area: 14.0 vba developer? LA length (vol): 5.4 cm RA long axis: 4.3 cm LA vol: 57.1 ml RA vol: 38.2 ml LA vol index: 29.2 ml/mA? RA : 19.5 ml/mA? Doppler Measurements and Calculations Ao V2 max: 155.0 cm/sec LVOT Max Akhil: 101.0 cm/sec Ao V2 mean: 121.7 cm/sec LV V1 max P.1 mmHg Ao V2 VTI: 37.1 cm LV V1 VTI: 26.7 cm Ao max P.6 mmHg SV(LVOT): 91.9 ml Ao mean P.2 mmHg SHERRILL(I,D): 2.48 vba developer? SHERRILL(V,D): 2.25 vba developer? SHERRILL indexed to BSA (cm^2/m^2): 1.27 sev ratio: 0.72 MV E max akhil: 70.1 cm/sec MV dec time: 0.20 sec MV A max akhil: 77.1 cm/sec MV E/A: 0.91 Med Peak E' Akhil: 5.7 cm/sec Lat Peak E' Akhil: 10.0 cm/sec E/e' average: 9.6 TR max akhil: 196.8 cm/sec PA mean P.22 mmHg TR max P.5 mmHg PA V2 max: 73.8 cm/sec Saniya Costa M.D. Electronically signed by: Saniya Costa M.D. 05/27/2023, 3: 23 AM
== END ==
LOC: ECHO 06:55
PROVIDERS: PCP Internal Medicine; Referring Provider Internal Medicine; Visit Provider Internal Medicine
DX: R55 Syncope and collapse (principal)
CPT/HCPCS: 93306

== ENCOUNTER → 2023-08-04 11:32 | Outpatient (CLI) | payer OTHER, SELFPAY ==
[2019-03-08 00:15] VITALS: BMI 25.8
--- NOTE | 2023-08-04 11:33 | DI.MG.S_ITS ---
BILATERAL DIGITAL SCREENING MAMMOGRAM 3D/2D WITH CAD: 08/04/2023 CLINICAL: Routine screening. Family history of breast cancer. Comparison is made to exams dated: 07/25/2022 mammogram, 05/12/2021 mammogram - [facility], and 03/29/2017 mammogram - [facility]. Both breasts are heterogeneously dense, which may obscure small masses (category c / 51-75% glandular tissue). Current study was also evaluated with a Computer Aided Detection (CAD) system. No significant masses, calcifications, or other findings are seen in either breast. There has been no significant interval change. IMPRESSION: NEGATIVE There is no mammographic evidence of malignancy. A 1 year screening mammogram is recommended. Based on the Tyrer Cuzick model (a risk assessment model) the patient's lifetime risk is 18.8% and her 10 year risk is 9.0%. According to the ACR, ACS, and NCCN guidelines, an annual breast MRI exam along with mammogram is recommended if the patient's lifetime risk is 20% or greater. This exam was interpreted at Station ID: [id number]. NOTE: For mammograms, a report in lay terms will be sent to the patient. Approximately 15% of breast malignancies will not be visualized mammographically. In the management of a palpable breast mass, a negative mammogram must not discourage biopsy of a clinically suspicious lesion. Electronically Signed By: Donnie strong/archie:08/04/2023 13:17:42 letter sent: Normal Exam ACR BI-RADS Category 1: Negative [id number]
== END ==
LOC: MAMMO 11:32
PROVIDERS: PCP Internal Medicine; Referring Provider Internal Medicine; Visit Provider Internal Medicine
DX: Z12.31 Encounter for screening mammogram for malignant neoplasm of breast (principal); Z80.3 Family history of malignant neoplasm of breast; R92.333 Mammographic heterogeneous density, bilateral breasts
CPT/HCPCS: 77063; 77067

== ENCOUNTER → 2024-08-04 10:58 | Outpatient (CLI) | payer OTHER, SELFPAY ==
[2019-03-08 00:15] VITALS: BMI 25.8
--- NOTE | 2024-08-04 10:59 | DI.MG.S_ITS ---
MM screening mammo BI: 08/04/2024. BI-RADS: 1 CLINICAL: 63-year old female for bilateral screening mammogram. Tyrer-Cuzick lifetime risk of 16.0%. Current reported family history of breast cancer: sister. PRIOR EXAMS 08/04/2023, 07/25/2022, 05/12/2021. MAMMOGRAPHY TECHNIQUE: 2D and 3D (tomosynthesis) digital mammographic views obtained, with additional images as needed for full coverage. Current study was also evaluated with a Computer Aided Detection (CAD) system. DENSITY C. The breasts are heterogeneously dense, which may obscure small masses. MAMMOGRAPHY FINDINGS Bilateral: No suspicious mass, asymmetry, microcalcification, or other abnormality seen. No significant change from comparison. IMPRESSION: * No evidence of malignancy. RECOMMENDATIONS Bilateral * Annual screening mammography. OVERALL ASSESSMENT CATEGORY BI-RADS-1: Negative. The [employer] [place] [employer] recommends annual screening mammography beginning at age 40 for women with average risk of breast cancer. ELECTRONICALLY SIGNED: Chey Dillard M.D. on 08/04/2024 at 12:36:59 PM PT Interpreting Station ID: [id number]
--- NOTE | 2024-08-04 10:59 | DI.RAD.S_ITS ---
PROCEDURE: XR DEXA AXIAL SKELETON INDICATIONS: ROUTINE SCREENING/OSTEOPOROSIS SCRN COMPARISON: None. FINDINGS: Lumbar Spine: Bone mineral density 1.016 g/cm2, T score -0.3, normal. Left Femoral Neck: Bone mineral density 0.697 g/cm2, T score -1.4. Left Hip: Bone mineral density 0.837 g/cm2, T score -0.9, normal. Fracture Risk Calculation (when applicable): 10-year fracture risk of a major osteoporotic fracture 8.6 percent and of a hip fracture 0.8 percent. (T score greater or equal to -1.0 to: NORMAL) (T score from -1.1 to -2.4: OSTEOPENIA) (T score less than or equal to -2.5: OSTEOPOROSIS) IMPRESSION: Osteopenia. Follow-up guidelines as follows: Osteoporosis: Consider a repeat DEXA and Vertebral Fracture Assessment (VFA) exam in 2 years or sooner if medically necessary, to reassess this patient's status. Osteopenia: Consider a repeat DEXA in 2-3 years to reassess this patient's status, or if there is a new clinical indication. Normal: Consider a repeat DEXA in 5 years or sooner, or if there is a new clinical indication. All treatment decisions require clinical judgment and consideration of individual patient factors, including patient preferences, comorbidities, previous drug use, risk factors not captured in the FRAX model (e.g., frailty, falls, vitamin D deficiency, increased bone turnover, interval significant decline in bone density ) and possible under- or over-estimation of fracture risk by FRAX. In addition, the NOF Guide recommends that FDA-approved medical therapies be considered in postmenopausal women and men age >= 50 years with a: * Hip or vertebral (clinical or morphometric) fracture * T-score of <=-2.5 at the spine or hip * Ten-year fracture probability by FRAX of >= 3% for hip fracture or >=20% for major osteoporotic fracture. Dictated by: Neil Hawkins M.D. on 08/04/2024 at 12:59 Approved by: Neil Hawkins M.D. on 08/04/2024 at 13:00
== END ==
PROVIDERS: PCP Registered Nurse; Referring Provider Registered Nurse; Visit Provider Registered Nurse
DX: Z12.31 Encounter for screening mammogram for malignant neoplasm of breast (principal); Z13.820 Encounter for screening for osteoporosis; M85.852 Other specified disorders of bone density and structure, left thigh; R92.333 Mammographic heterogeneous density, bilateral breasts; Z78.0 Asymptomatic menopausal state; Z80.3 Family history of malignant neoplasm of breast
CPT/HCPCS: 77063; 77067; 77080

== ENCOUNTER 2024-10-04 13:09 | Emergency (ER) | payer OTHER, SELFPAY ==
[2019-03-08 00:15] VITALS: BMI 25.8
[2024-10-04 13:36] VITALS: BP 99/61; PULSE 66; RESP 16; TEMP 36.7; O2SAT 97; BMI 26.6
--- NOTE | 2024-10-04 13:43 | DI.RAD.S_ITS ---
PROCEDURE: XR WRIST LT MIN 3V INDICATIONS: Fall, pain and swelling to L wrist TECHNIQUE: 4 views of the wrist were acquired. COMPARISON: None. FINDINGS/IMPRESSION: Minimally displaced, nonangulated fracture of the distal radial metadiaphysis, without intra-articular extension. Dictated by: Neil Hawkins M.D. on 10/04/2024 at 14:44 Approved by: Neil Hawkins M.D. on 10/04/2024 at 14:44
--- NOTE | 2024-10-04 13:50 | ED_ITS ---
<Statement entered by Gumaro Mirza, DO - 10/05/24 08:51> co-sign statement: I was available for consultation during this patient's emergency department visit. This chart is signed by myself for administrative purposes only. I did not have direct contact with this patient during this visit. They were seen independantly by the APC. HPI - Extremity Injury (Upper) General Chief Complaint: Extremity Injury, Upper Stated Complaint: Might have broken her left wrist Time Seen by Provider: 10/04/24 13:46 Source: patient Mode of arrival: Family Vehicle History of Present Illness HPI narrative: Ms. Young is a pleasant 64-year-old female with a past medical history of OA, dep/anx who presents to the emergency department for left wrist pain after an accidental fall earlier today. Patient states she was outside under a tree when she accidentally slipped on roots falling forward. She denies any symptoms precipitating the fall, no lightheadedness, dizziness, syncope. She has experience vasovagal syncope in the past but denies this occurring today. Patient states she braced herself using her left hand/wrist and subsequently developed a small bruise on the radial side of the left forearm/wrist and has pain in this area. No pain of the left hand, left elbow, left upper arm or the remainder of the appendicular skeleton. She did not hit her head or lose consciousness. No open wounds. No numbness tingling or weakness. No medications prior to arrival. Related Data Home Medications Medication Instructions Recorded Confirmed multivitamin 1 tab PO DAILY 12/05/19 06/12/24 Previous Rx's Medication Instructions Recorded Vitamin B3 1 tab PO DAILY #1 tab 04/01/21 oxybutynin chloride 5 mg 5 mg PO DAILY Urinary urgency and 09/30/22 tablet,extended release 24 hr frequency #30 tabs trazodone 50 mg tablet 50 mg PO BEDTIME PRN insomnia #90 01/15/23 tabs hydrocodone 5 mg-acetaminophen 325 1 tab PO Q4-6H PRN pain #12 tabs 10/04/24 mg tablet ondansetron 4 mg disintegrating 4 mg PO Q8H PRN nausea and 10/04/24 tablet vomiting #14 tabs Allergies Allergy/AdvReac Type Severity Reaction Status Date / Time rosuvastatin [From Crestor] AdvReac Intermediate felt poorly Verified 06/12/24 10:21 Review of Systems Review of Systems ROS Unobtainable: All systems reviewed & are unremarkable except as noted in HPI and below Patient History Medical History Urge incontinence Hair loss Bulimia Bilateral bunions (~2016) Anemia (~1989) Vaginal atrophy (~2016) Irregular menstrual cycle Fibroids (~2008) History of urinary incontinence (~2016) History of supraventricular tachycardia (~2013) History of iron deficiency anemia Surgical History Anesthesia History of hysterectomy (~2008) History of section (~1985) No pertinent past surgical history Family History Mother Skin cancer Diabetes mellitus Mental health problem Stroke Arthritis Family history of thyroid problem Sister Cancer Hyperlipidemia Family/Other Hypertension Social History household members: family second hand exposure: No alcohol intake: current substance use type: marijuana alcohol intake frequency: a few times a week Exam Narrative Exam Narrative: GENERAL: 64 year old patient appears stated age. Well-developed patient, in no acute distress. HEAD: Atraumatic. Normocephalic. EYES: Extraocular motions intact. No scleral icterus. No injection or drainage. NECK: Trachea midline. Cervical ROM intact. CARDIOVASCULAR: Regular rate RESPIRATORY: ?Nonlabored respirations. ?Speaking in clear, full sentences. EXTREMITIES: Patient has small area of ecchymosis on the distal/mid left radial forearm with tenderness overlying this area. No snuffbox tenderness, hand tenderness, phalanx tenderness proximal forearm tenderness or elbow tenderness. Strong radial pulse, brisk cap refill, sensation intact in the distribution of median, radial, ulnar nerve. Pain with flexion/extension of the wrist in the area of bruising. NEURO: AOx3. ?Clear speech. ?Moves all 4 extremities appropriately. SKIN: No rash or erythema of visible areas. 1 cm area of ecchymosis on the mid to distal dorsal left forearm, radial aspect Initial Vital Signs Initial Vital Signs: Vital Signs Temperature 98.1 F 10/04/24 13:36 Pulse Rate 66 10/04/24 13:36 Respiratory Rate 16 10/04/24 13:36 Blood Pressure 99/61 10/04/24 13:36 Pulse Oximetry 97 10/04/24 13:36 Oxygen Delivery Method Room Air 10/04/24 13:36 Procedures Orthopedic Splinting/Casting Injury #1: Side: left Upper Extremity Injury Location: wrist Post splinting neuro exam: intact and no change Post splinting vascular exam: no change Placed by: Nursing Additional Comments: left sugartong, sling Course Orders Ordered: ED Orders 10/04/24 13:43 XR wrist LT min 3V Stat Discontinued Medications Acetaminophen (Acetaminophen 325 Mg Tablet) 650 mg PO NOW ONE Stop: 10/04/24 14:07 Last Admin: 10/04/24 14:41 Dose: 650 mg Documented By: ANTONY Hydrocodone Bitart/Acetaminophen (Hydrocodone/Acet 5/325 Tablet) 1 tab PO NOW ONE Stop: 10/04/24 17:13 Last Admin: 10/04/24 17:44 Dose: 1 tab Documented By: ANTONY Ibuprofen (Ibuprofen 400 Mg Tablet) 400 mg PO NOW ONE Stop: 10/04/24 14:07 Last Admin: 10/04/24 14:42 Dose: 400 mg Documented By: ANTONY Ondansetron HCl (Ondansetron 4 Mg Odt) 4 mg SL NOW ONE Stop: 10/04/24 14:07 Last Admin: 10/04/24 14:41 Dose: 4 mg Documented By: ANTONY Vital Signs Vital signs: Vital Signs - 8 hr 10/04/24 13:36 10/04/24 18:11 Temperature 98.1 F Pulse Rate 66 63 Respiratory Rate 16 16 Blood Pressure 99/61 139/74 Pulse Oximetry 97 98 Oxygen Delivery Method Room Air Room Air MDM - Extremity Injury (Upper) Medical Records Attestation: I reviewed the patient's medical records. Medical records narrative: Reviewed prior ED visits Imaging Data Left Wrist X-Ray: Radiologist's Impression: PROCEDURE: XR WRIST LT MIN 3V INDICATIONS: Fall, pain and swelling to L wrist TECHNIQUE: 4 views of the wrist were acquired. COMPARISON: None. FINDINGS/IMPRESSION: Minimally displaced, nonangulated fracture of the distal radial metadiaphysis, without intra-articular extension. Dictated by: Neil Hawkins M.D. on 10/04/2024 at 14:44 Approved by: Neil Hawkins M.D. on 10/04/2024 at 14:44 MDM Narrative Medical decision making narrative: 64-year-old female with a past medical history of OA, dep/anx who presents to the emergency department for left wrist pain after an accidental fall earlier today. Differential diagnosis includes but is not limited to left wrist contusion, hematoma, sprain, strain, fracture, dislocation, etc. On exam patient is in no acute distress, nontoxic appearing, vital signs within normal limits. On her left wrist, she has small area of ecchymosis in the mid/distal radial wrist region and pain and tenderness in this area as well. No deformities. Neurovascularly intact. Left wrist x-ray obtained in triage, we will treat pain with ibuprofen and Tylenol, patient would like nausea medicine prior to these pain medications. X-ray reveals minimally displaced, nonangulated fracture of the distal radial meta diaphysis, without intra-articular extension. Patient was placed into a left arm sugar-tong splint by nursing staff, neurovascularly intact both before and after the application of the splint. Sling for comfort. Talmage for pain. Recommended rice therapy, short course of Talmage prescribed, ibuprofen acetaminophen for mild pain. Provided information for [facility] follow up. ED return precautions discussed, risks of narcotic pain medication discussed. Patient verbalized understanding of all information agreeable to plan. She is stable for discharge home. Discharge Plan Departure Patient Disposition: Home Clinical Impression: Fall from ground level Distal radius fracture, left Qualifiers: Encounter type: initial encounter Fracture type: closed Fracture morphology: unspecified fracture morphology Qualified Code(s): S52.502A - Unspecified fracture of the lower end of left radius, initial encounter for closed fracture Instructions: DI for Wrist Fracture Activity Restrictions/Additional Instructions: Dear Mohan Hannah, Thank you for coming to the emergency department. Today you were evaluated for left wrist pain after fall and your x-ray revealed a fracture of the distal radius bone. You have been placed into a temporary splint. Please follow up with the orthopedic doctor at [facility] listed below for further evaluation and management. Please use RICE therapy for your pain in addition to ibuprofen/acetaminophen. Rest the painful area. Ice the area of pain/swelling for at least 15 minutes, 4x a day. Compress the area of swelling using a brace, wrap, or splint if applied. Elevate the painful or swollen extremity by supporting it above the level of the heart with pillows when sitting or laying. Please take Ibuprofen (Motrin/Advil) or Acetaminophen (Tylenol) for pain. These are available over the counter. You may take Ibuprofen 600 mg every 8 hours with food for pain. You may also take Acetaminophen 650 mg every 4-6 hours for pain. Do not exceed 3000 mg of Tylenol a day as this can cause liver damage. Do not drink alcohol with either of these medications. You have been prescribed a short course of narcotic medications. These are potentially dangerous and addictive medications that should be used carefully. While on these medications you cannot drive or operate heavy machinery. Additionally, you cannot sign legal documents or perform any duties such as this. Many people get constipated on narcotic medications so it would be advisable to discuss stool softeners with the pharmacist when you burr picker your prescription. Please understand that we cannot provide further refills of narcotics or controlled substances through the ED and your pain management will need to be through your Primary Care Provider Please follow up with your primary care doctor within the next 2-3 days for ER follow-up. (If you do not have a PCP you can call [phone]. ?to schedule an appointment with an [facility] Primary Care Provider) IF YOU DEVELOP ANY NEW OR WORSENING SYMPTOMS, RETURN TO THE ER! Please read the attached instructions, they highlight more specific treatments and interventions for you at home. Thank you for letting me participate in your care, Sweta Cowan PA-C Prescriptions: New hydrocodone-acetaminophen 5-325 mg tablet 1 tab PO Q4-6H PRN (Reason: pain) Qty: 12 0RF ondansetron 4 mg tablet,disintegrating 4 mg PO Q8H PRN (Reason: nausea and vomiting) Qty: 14 0RF No Action Vitamin B3 500 mg 1 tab PO DAILY Qty: 1 0RF oxybutynin chloride 5 mg tablet extended release 24hr 5 mg PO DAILY Qty: 30 12RF trazodone 50 mg tablet 50 mg PO BEDTIME PRN (Reason: insomnia) Qty: 90 3RF multivitamin Tablet 1 tab PO DAILY Referrals: Malena Pulido ARNP [Primary Care Provider] - Daniel Penaloza MD [Physician] - (left wrist: Minimally displaced, nonangulated fracture of the distal radial metadiaphysis, without intra-articular extension) Stand Alone Forms: Patient Portal/API/Survey
[2024-10-04] MEDS: ACETAMINOPHEN 325 MG TABLET 650 MG PO (14:41)
[2024-10-04] MEDS: ONDANSETRON 4 MG ODT SL (14:41)
[2024-10-04] MEDS: IBUPROFEN 400 MG TABLET PO (14:42)
[2024-10-04] MEDS: HYDROCODONE/ACET 5/325 TABLET 1 TAB PO (17:44)
[2024-10-04 18:11] VITALS: BP 139/74; PULSE 63; RESP 16; O2SAT 98
== END 2024-10-04 18:14 | disposition home or self-care (01) ==
PROVIDERS: Emergency Provider Physician Assistant; PCP Registered Nurse
DX: S52.502A Unspecified fracture of the lower end of left radius, initial encounter for closed fracture (principal); W01.0XXA Fall on same level from slipping, tripping and stumbling without subsequent striking against object, initial encounter
CPT/HCPCS: 29125; 73110; 99283

== ENCOUNTER → 2025-01-23 15:11 | Outpatient (CLI) | payer OTHER, SELFPAY ==
[2019-03-08 00:15] VITALS: BMI 25.8
--- NOTE | 2025-01-23 18:03 | DI.NM.S_ITS ---
DATE OF SERVICE: 01/23/2025 EXERCISE TREADMILL STRESS TEST PROCEDURE: Exercise treadmill stress test without imaging. ORDERING PROVIDER: BOB Perdomo. INDICATIONS: The patient is a 64-year-old female with a history of SVT ablation with recent palpitations and a remote history of syncope. FINDINGS: 1. The patient was able to exercise for 9 minutes on a standard Lawson protocol suggesting excellent exercise capacity with an MONTEZ of -43%, achieving 10.1 METS. 2. She had a normal heart rate and blood pressure response to exercise, achieving a maximum heart rate of 158 bpm (103% of her predicted maximum). 3. She had moderate dyspnea but no chest discomfort or other anginal symptoms. 4. Her resting ECG shows sinus rhythm with normal ST segments. There are no significant ST-segment shifts or arrhythmias with stress except for rare isolated PVCs without complex ectopy. IMPRESSION: 1. Normal exercise treadmill stress test for ischemia. 2. Excellent exercise capacity without angina or arrhythmias except for rare isolated PVCs. Jenni Young - RS/simon/[employer]LECT[employer]STRUMENTATION MECH[employer]IC doc#: [id number]/job#: [id number] dd: 01/23/2025 17:23:00 dt: 01/23/2025 17:52:00 DICTATING MD/COPIES TO: Shaquille Tubbs MD; Malena Pulido NP COPIES MNE: ADRIANA
== END ==
PROVIDERS: PCP Registered Nurse; Referring Provider Registered Nurse; Visit Provider Registered Nurse
DX: I47.9 Paroxysmal tachycardia, unspecified (principal)
CPT/HCPCS: 93017

== ENCOUNTER → 2025-01-30 14:56 | Outpatient (CLI) | payer OTHER, SELFPAY ==
[2019-03-08 00:15] VITALS: BMI 25.8
--- NOTE | 2025-01-30 14:58 | DI.ECHO.S_ITS ---
[facility] : : [address] : : [place] : : [id number] : : Phone: [phone] Echocardiogram Report + + :Name: MARIA M GARCIA Study Date: 01/30/2025 Height: 68 in : :[facility] ReadingLocation: Weight: 182 lb : : Gender: Female BSA: 2.0 m2 : :: 1960 Age: 64 yrs BP: 139/87 mmHg: :Reason For Study: TACHYCARDIA : :Ordering Physician: LORE, : :ALEAH Performed By: Dev Ramírez : :Referring: ALEAH TORREZ : + + Interpretation Summary - The left ventricular contractility is normal. Estimated ejection fraction is greater than 60% with no segmental wall motion abnormalities. No LVH. Normal diastolic function. - The right ventricular contractility is normal. - All cardiac chambers are of normal size. - No significant valvular abnormalities. - No obvious intracardiac shunts. - No obvious intracardiac masses nor thrombi. - No hemodynamically significant pericardial effusion. - Low right-sided filling pressures. Conclusion: Normal biventricular function with no significant valvular abnormalities. When compared to previous echocardiogram, no significant changes have occurred. Procedure: A two-dimensional transthoracic echocardiogram with color flow and Doppler was performed. The study quality was technically good. Comparison is made with the echocardiogram of 05/26/2023. The patient was in normal sinus rhythm during the exam. Left Ventricle: The left ventricle is normal in size. There is normal left ventricular wall thickness. There is no ventricular septal defect visualized. The ejection fraction is estimated to be 60-65%. There are no focal wall motion abnormalities. Diastolic parameters suggest probable normal left ventricular diastolic function and normal filling pressures. Right Ventricle: The right ventricle is normal in size and function. Atria: The left atrial size is normal. Right atrial size is normal. There is no Doppler evidence for an interatrial shunt. Mitral Valve: The mitral valve leaflets appear normal. There is no evidence of stenosis, fluttering, or prolapse. There is trace mitral regurgitation. Aortic Valve: The aortic valve is trileaflet. The aortic valve opens well. No aortic regurgitation is present. Tricuspid Valve: The tricuspid valve leaflets are thin and pliable. There is trace tricuspid regurgitation. Pulmonic Valve: The pulmonic valve leaflets are thin and pliable; valve motion is normal. There is trace pulmonic regurgitation. Great Vessels: The aortic root is normal size. The dimensions of the ascending aorta are normal. The pulmonary artery is normal size. The IVC is of normal diameter and collapses greater than 50% with a sniff. This suggests a low right atrial pressure of 3 mm Hg. Pericardium/ Pleura There is no pericardial effusion. There is no pleural effusion. MMode/2D Measurements & Calculations LVIDd: 4.8 cm LVOT diam: 1.9 cm LVIDs: 3.0 cm Ao root diam: 3.3 cm FS: 36.7 % asc Aorta Diam: 3.6 cm EPSS: 0.32 cm IVSd: 0.89 cm LVPWd: 0.87 cm LV valentine. diameter/BSA (cm/m^2): 2.4 LV sys. diameter/BSA (cm/m^2): 1.6 LA A2 area: 18.7 cm2 RA long axis: 5.0 cm LA A4 area: 21.0 cm2 RA area: 15.0 cm2 LA length (vol): 5.5 cm RA vol: 38.0 ml LA vol: 61.1 ml RA : 19.3 ml/m2 LA vol index: 31.1 ml/m2 IVC diam: 1.2 cm RVD1 (basal): 3.8 cm RVD2 (mid): 3.1 cm TAPSE: 2.3 cm Doppler Measurements & Calculations Ao V2 max: 172.4 cm/sec LVOT Max Akhil: 106.3 cm/sec Ao V2 mean: 122.6 cm/sec LV V1 max P.5 mmHg Ao max P.9 mmHg LV V1 VTI: 26.3 cm Ao mean P.6 mmHg SHERRILL(I,D): 2.2 cm2 Ao V2 VTI: 35.9 cm SHERRILL(V,D): 1.8 cm2 sev ratio: 0.73 SHERRILL indexed to BSA (cm^2/m^2): 1.1 MV E max akhil: 72.6 cm/sec TR max akhil: 241.6 cm/sec MV A max akhil: 71.7 cm/sec TR max P.4 mmHg MV E/A: 1.0 PA V2 max: 135.3 cm/sec Med Peak E' Akhil: 6.9 cm/sec PA V2 mean: 93.9 cm/sec E/E' med: 10.5 PA mean P.9 mmHg Lat Peak E' Akhil: 8.0 cm/sec PA pr(Accel): 55.0 mmHg E/E' lat: 9.0 E/e' average: 9.8 MV dec time: 0.16 sec SV(LVOT): 77.3 ml Reading Physician:GIL
== END ==
PROVIDERS: PCP Registered Nurse; Referring Provider Registered Nurse; Visit Provider Registered Nurse
DX: I47.9 Paroxysmal tachycardia, unspecified (principal)
CPT/HCPCS: 93306

== ENCOUNTER → 2025-01-31 12:51 | Outpatient (CLI) | payer OTHER, SELFPAY ==
[2019-03-08 00:15] VITALS: BMI 25.8
--- NOTE | 2025-01-31 12:53 | DI.US.S_ITS ---
PROCEDURE: US CAROTID DOPPLER BI INDICATIONS: TACHYCARDIA TECHNIQUE: Color and pulse Doppler interrogation was performed of both carotid systems, with image documentation and velocity measurements. COMPARISON: None. FINDINGS: Stenosis calculations are based on SRU (Society of Radi[employer] in Ultras[employer]) criteria. The flow velocities and the arterial waveforms are normal within both carotid arterial systems. The estimated degree of internal carotid artery stenosis is less than 50%. Antegrade flow is confirmed within both vertebral arteries. IMPRESSION: Normal. Dictated by: Tito Jimenes M.D. on 01/31/2025 at 12:37 Approved by: Tito Jimenes M.D. on 01/31/2025 at 12:55
== END ==
PROVIDERS: PCP Registered Nurse; Referring Provider Registered Nurse; Visit Provider Registered Nurse
DX: I47.9 Paroxysmal tachycardia, unspecified (principal); R42 Dizziness and giddiness; R55 Syncope and collapse
CPT/HCPCS: 93880